=== PATIENT | male | born 1960 | race Caucasian/White ===

== ENCOUNTER 2020-10-07 10:15 | Emergency (ER) | payer BC ==
[2020-10-07 12:01] LABS: Urine Blood Trace-lysed (Negative); Urine Glucose Negative (Negative); Urine Protein Negative (Negative); Urine Specific Gravity 1.025 (1.005-1.030); Urine pH 5.5 (5.0-7.0)
--- NOTE | 2020-10-07 12:07 | RAD REPORT ---
EXAM DESCRIPTION: CT - CTHCSPWOC - 10/07/2020 11:58 am CLINICAL HISTORY: Trauma, head and neck injury. Dizziness;Pain COMPARISON: Head Brain Wo Cont dated 05/07/2017 TECHNIQUE: Axial 5 mm thick images of the head were obtained. Axial 2 mm thick images of the cervical spine were obtained with sagittal and coronal reconstruction images generated and reviewed. All CT scans are performed using dose optimization technique as appropriate and may include automated exposure control or mA/KV adjustment according to patient size. FINDINGS: CT HEAD WITHOUT CONTRAST: No acute hemorrhage, hydrocephalus or extra-axial collection is identified.No areas of brain edema or midline shift. The right maxillary sinus is opacified.This is chronic.The calvarium is intact. CT CERVICAL SPINE WITHOUT CONTRAST: No fracture or subluxation.No prevertebral soft tissues swelling is identified. Mild cervical spondyl osis which is most advanced at the C6-7 level were there is moderate disc height loss and neural fora nishi narrowing, predominantly left-sided. . No central spinal stenosis is appreciated. IMPRESSION: No acute intracranial or cervical spine findings.
[2020-10-07] MEDS ORDERED: ACETAMINOPHEN 500 MG TAB ONE (12:09)
[2020-10-07] MEDS ORDERED: FAMOTIDINE 20 MG/2 ML VIAL IV ONE (12:09)
[2020-10-07] MEDS ORDERED: KETOROLAC 30 MG/ML INJ ONE (12:09)
[2020-10-07] MEDS ORDERED: NA CHLORIDE 0.9% 500 ML ONE (12:09)
--- NOTE | 2020-10-07 12:17 | RAD REPORT ---
EXAM DESCRIPTION: RAD - Chest Single View - 10/07/2020 12:10 pm CLINICAL HISTORY: Dizziness and near syncope COMPARISON: Chest Single View dated 05/07/2017; Chest Single View dated 08/04/2015; CHEST SINGLE VIEW d ated 03/02/2010; CHEST SINGLE VIEW dated 02/16/2010 FINDINGS: No evidence of edema or pneumonia. The heart size is within normal limits.No acute osseous abnormality. No significant pleural effusions or pneumothorax. IMPRESSION: No acute cardiopulmonary disease.
[2020-10-07 12:33] LABS: Basophils % 0.7 % (0-1.3); Hematocrit 44.8 % (39.6-49.0); Lymphocytes % 20.6 % (15.3-44.8); MPV 8.1 fL (7.6-11.3); RBC Red Blood Cell Count 5.11 M/uL (4.33-5.43)
[2020-10-07 12:36] LABS: Urine Bacteria <20 /HPF (NONE SEEN); Urine RBC <5 /HPF (NONE SEEN)
[2020-10-07 12:37] LABS: Protime INR 1.15
[2020-10-07 12:54] LABS: ALT/SGPT 39 U/L (12-78); AST/SGOT 20 U/L (15-37); Albumin 3.9 g/dL (3.4-5.0); Alkaline Phosphatase 83 U/L (45-117); BUN Blood Urea Nitrogen 9 mg/dL (7-18); Bicarbonate 24 mmol/L (21-32); Bilirubin Direct 0.2 mg/dL (0-0.2); Glucose Level 102 mg/dL (74-106); Magnesium 2.1 mg/dL (1.8-2.4); NT PRO-BNP 23 pg/mL (<125); Potassium 3.8 mmol/L (3.5-5.1); Sodium Level 136 mmol/L (136-145); Troponin (Emerg Dept Use Only) < 0.02 ng/mL (0.0-0.045)
[2020-10-07 12:56] LABS: C-Reactive Protein 28.3 mg/L (<3.00); Ferritin 349.7 ng/mL (26-388)
--- NOTE | 2020-10-07 13:22 | RAD REPORT ---
EXAM DESCRIPTION: CT - Chest For Pe Angio - 10/07/2020 1:12 pm CLINICAL HISTORY: r/o PE COMPARISON: CTANGIO CHEST FOR PE dated 02/16/2010; Chest Single View dated 10/07/2020 TECHNIQUE: Dynamically enhanced 3 mm thick images of the chest were obtained during administration o f approximately 150mL Isovue 370 IV contrast. Coronal and oblique MIP reconstruction images were gene rated and reviewed. Exam utilizes a protocol to evaluate the pulmonary arterial tree. All CT scans are performed using dose optimization technique as appropriate and may include automated exposure control or mA/KV adjustment according to patient size. FINDINGS: No pulmonary emboli are identified. The aorta as imaged shows no acute or suspicious finding. No pericardial thickening or effusion. No infiltrate or mass in the lung parenchyma. No pleural effusion or pleural thickening. Slight motio n accentuates the interstitial pattern. Significant interstitial edema is not suspected. No mediastinal or hilar suspicious masses. No chest wall masses or abnormal axillary lymphadenopathy. IMPRESSION: No pulmonary emboli identified. No other significant or suspicious findings.
[2020-10-07 13:39] LABS: SARS-COV-2 RT PCR NEGATIVE (NEGATIVE)
--- NOTE | 2020-10-07 14:14 | ER ---
Nurse's Notes [facility] Name: Kunal Russell Age: 59 yrs Sex: Male : 1960 Arrival Date: 10/07/2020 Time: 10:20 Bed 19 Private MD: Rj Garcia Diagnosis: Fever, unspecified;Viral infection, unspecified Presentation: 10/07 10:34 Chief complaint: Patient states: Dizziness and nausea, fatigue x 3-4 weeks, fell this jl7 morning from dizziness; left sided neck pain 2-3 months; tested for COVID yesterday and it was negative, had the Pfizer shot yesterday. Coronavirus screen: Client denies travel out of the [place] in the last 14 days. fatigue, Client presents with at least one sign or symptom that may indicate coronavirus-19. Standard/surgical mask placed on the client. Provider contacted for isolation considerations. Ebola Screen: No symptoms or risks identified at this time. Initial Sepsis Screen: Does the patient meet any 2 criteria? No. Patient's initial sepsis screen is negative. Does the patient have a suspected source of infection? No. Patient's initial sepsis screen is negative. Risk Assessment: Do you want to hurt yourself or someone else? Patient reports no desire to harm self or others. Onset of symptoms is unknown. Care prior to arrival: None. 10:34 Method Of Arrival: Wheelchair jl7 10:34 Acuity: HUY 3 jl7 Triage Assessment: 10:38 General: Appears in no apparent distress. uncomfortable, Behavior is calm, cooperative, jl7 appropriate for age. Pain: Complains of pain in left side of neck Pain currently is 10 out of 10 on a pain scale. GI: Reports nausea, vomiting. Historical: - Allergies: 10:38 Codeine; jl7 10:38 Demerol; jl7 10:38 Morphine; jl7 10:38 PENICILLINS; jl7 10:38 Phenergan; jl7 - PMHx: 10:38 Hypertension; jl7 - Immunization history:: Adult Immunizations up to date, Client reports receiving the 1st dose of the Covid vaccine, October 06, 2020 Pfizer. - Social history:: Smoking status: Patient denies any tobacco usage or history of. Screenin:42 Abuse screen: Denies threats or abuse. Nutritional screening: No deficits noted. rb3 Tuberculosis screening: No symptoms or risk factors identified. Fall Risk Fall in past 12 months (25 points). No secondary diagnosis (0 pts). No IV (0 pts). Ambulatory Aid- None/Bed Rest/Nurse Assist (0 pts). Gait- Weak (10 pts.). Mental Status- Oriented to own ability (0 pts). Total [place] Fall Scale indicates Low Risk Score (25-44 pts). Fall prevention measures have been instituted. Side Rails Up X 2 Placed close to Nursing Station 1:1 attendant Assigned to Pt. Frequent Obs/Assesments occuring As available Patient and Family Educated on Fall Prevention Program and strategies. Assessment: 10:42 General: Appears in no apparent distress. Behavior is calm, cooperative, Reports fever rb3 for fatigue for 2-3 months. Pain: Complains of pain in left side of neck. Pain: Complains of pain in right hand. Neuro: Level of Consciousness is awake, alert, obeys commands, Oriented to person, place, time, situation. Neuro: Reports dizziness, a syncopal episode weakness Pt reports when he stands up he gets really dizzy and falls.. Cardiovascular: Reports fatigue, nausea, syncope, vomiting, Dizziness. Pt reports falling twice this morning due to feeling dizzy. Capillary refill < 3 seconds Patient's skin is warm and dry. Respiratory: Airway is patent Respiratory effort is even, unlabored, Respiratory pattern is regular, symmetrical. GI: Abdomen is non-distended, Reports nausea, vomiting. : No signs and/or symptoms were reported regarding the genitourinary system. Derm: Reports A knot popped up on his left foot this morning and he doesn't know what happened to it. Musculoskeletal: Range of motion: intact in all extremities. 11:40 Reassessment: Patient appears in no apparent distress at this time. Patient and/or rb3 family updated on plan of care and expected duration. Pain level reassessed. Patient is alert, oriented x 3, equal unlabored respirations, skin warm/dry/pink. 12:30 Reassessment: Patient appears in no apparent distress at this time. No changes from rb3 previously documented assessment. 12:53 Reassessment: Dr. Mcgowan notified of elevated Ddimer 753. Verbal order given for CT ss chest PE. 13:30 Reassessment: Patient appears in no apparent distress at this time. Patient and/or rb3 family updated on plan of care and expected duration. Pain level reassessed. Patient is alert, oriented x 3, equal unlabored respirations, skin warm/dry/pink. Vital Signs: 10:34 BP 159 / 86; Pulse 84; Resp 17; Temp 101.4; Pulse Ox 99% ; Weight 95.25 kg; Height 6 jl7 ft. 1 in. (185.42 cm); Pain 10/10; 11:30 BP 156 / 83; Pulse 85; Resp 17; Pulse Ox 97% ; rb3 12:30 BP 138 / 93; Pulse 80; Resp 20; Pulse Ox 97% ; rb3 13:30 BP 122 / 59; Pulse 73; Resp 23; Pulse Ox 94% ; rb3 10:34 Body Mass Index 27.71 (95.25 kg, 185.42 cm) jl7 ED Course: 10:20 Patient arrived in ED. mr 10:20 Rj Garcia MD is Private Physician. mr 10:34 Tex Mcgowan MD is Attending Physician. kdr 10:38 Triage completed. jl7 10:38 Arm band placed on right wrist. Patient placed in an exam room, on a stretcher. jl7 10:42 Patient has correct armband on for positive identification. Bed in low position. Call rb3 light in reach. Side rails up X 1. air sampling and monitoring on. Pulse ox on. NIBP on. 10:50 Roxana Yeboha, RN is Primary Nurse. rb3 11:58 CT Head C Spine In Process Unspecified. EDMS 12:10 XRAY Chest (1 view) In Process Unspecified. EDMS 12:20 Initial lab(s) drawn, by ok, sent to lab. First set of blood cultures drawn. Inserted mt saline lock: 20 gauge in right forearm, using aseptic technique. Blood collected. 13:12 CT Chest For PE Angio In Process Unspecified. EDMS 14:13 Rj Garcia MD is Referral Physician. kdr 14:53 No provider procedures requiring assistance completed. IV discontinued, intact, rb3 bleeding controlled, No redness/swelling at site. Pressure dressing applied. Administered Medications: 12:15 Drug: Tylenol 1000 mg Route: PO; rb3 13:10 Follow up: Response: No adverse reaction; Temperature is decreased; Temp. 99.0 rb3 12:25 Drug: NS 0.9% 500 ml Route: IV; Rate: bolus; Site: right forearm; rb3 13:00 Follow up: IV Status: Completed infusion rb3 12:25 Drug: Ketorolac 15 mg Route: IVP; Site: right forearm; rb3 12:40 Follow up: Response: No adverse reaction rb3 12:25 Drug: Pepcid (famotidine) 20 mg Route: IVP; Site: right forearm; rb3 12:40 Follow up: Response: No adverse reaction rb3 Intake: Outcome: 14:14 Discharge ordered by . kdr 14:53 Discharged to home via wheelchair, with family. rb3 14:53 Condition: stable 14:53 Discharge instructions given to patient, Instructed on discharge instructions, follow up and referral plans. medication usage, Demonstrated understanding of instructions, follow-up care, medications, Prescriptions given X 1. 14:54 Patient left the ED. rb3 Signatures: Dispatcher [employer] EDMS Tex Mcgowan MD MD kdr Rivera, Mary mr Smirch, Shelby, RN RN Dominique Mills RN RN [email or web address] [place] Roxana Richardson RN RN rb3
--- NOTE | 2020-10-07 14:14 | EDPHYS ---
Physician Documentation [facility] Name: Kunal Russell Age: 59 yrs Sex: Male : 1960 Arrival Date: 10/07/2020 Time: :20 Bed 19 Private MD: Rj Garcia ED Physician Tex Mcgowan HPI: 10/07 16:19 This 59 yrs old Male presents to ER via Wheelchair with complaints of kdr Dizziness, Vomiting, Neck pain. 16:19 Has multiple longstanding complaints including fatigue for 3 to 4 weeks dizziness left kdr neck pain and nausea. He states that since he moved his home belongings from [facility] to [place] about a month ago and that he by himself, he has been very fatigued and unable to get back to his baseline. He also complains of left neck pain has been ongoing for 2 to 3 months. He has been previously evaluated for this and was given medication for it which while taking the medication, was resolved, immediately upon cessation of that medication he again began to have pain in his left neck. He has no radiculopathy secondary to this apparent neck pain. Patient is awake alert and oriented x3 he shows no signs of acute distress he is moving all extremities. He is moving his head up and down side to side without any evidence of nuchal rigidity. He was noted to be febrile on arrival. Otherwise she appeared stable.. Severity of symptoms: At their worst the symptoms were mild moderate in the emergency department the symptoms are unchanged. The patient has not experienced similar symptoms in the past. Patient has had several physician visits for some of the symptoms without any clear resolution or diagnosis found.. Historical: - Allergies: 10:38 Codeine; jl7 10:38 Demerol; jl7 10:38 Morphine; jl7 10:38 PENICILLINS; jl7 10:38 Phenergan; jl7 - PMHx: 10:38 Hypertension; jl7 - Immunization history:: Adult Immunizations up to date, Client reports receiving the 1st dose of the Covid vaccine, October 06, 2020 Beaming. - Social history:: Smoking status: Patient denies any tobacco usage or history of. ROS: 16:19 Constitutional: Negative for fever, chills, and weight loss, he has had generalized kdr fatigue for about a month Eyes: Negative for injury, pain, redness, and discharge, ENT: Negative for injury, pain, and discharge, Cardiovascular: Negative for chest pain, palpitations, and edema, Respiratory: Negative for shortness of breath, cough, wheezing, and pleuritic chest pain, Abdomen/GI: Negative for abdominal pain, nausea, vomiting, diarrhea, and constipation, Back: Negative for injury and pain, : Negative for injury, bleeding, discharge, and swelling, MS/Extremity: Negative for injury and deformity, Skin: Negative for injury, rash, and discoloration, Psych: Negative for depression, anxiety, suicide ideation, homicidal ideation, and hallucinations, Allergy/Immunology: Negative for hives, rash, and allergies, Endocrine: Negative for neck swelling, polydipsia, polyuria, polyphagia, and marked weight changes, Hematologic/Lymphatic: Negative for swollen nodes, abnormal bleeding, and unusual bruising. 16:19 Neuro: Positive for dizziness, weakness, Generalized fatigue, Negative for altered mental status, numbness, seizure activity, speech changes, syncope, near syncope. Exam: 16:19 Constitutional: This is a well developed, well nourished patient who is awake, alert, kdr and in no acute distress. Head/Face: Normocephalic, atraumatic. Eyes: Pupils equal round and reactive to light, extra-ocular motions intact. Lids and lashes normal. Conjunctiva and sclera are non-icteric and not injected. Cornea within normal limits. Periorbital areas with no swelling, redness, or edema. Chest/axilla: Normal chest wall appearance and motion. Nontender with no deformity. No lesions are appreciated. Cardiovascular: Regular rate and rhythm with a normal S1 and S2. No gallops, murmurs, or rubs. Normal PMI, no JVD. No pulse deficits. Respiratory: Lungs have equal breath sounds bilaterally, clear to auscultation and percussion. No rales, rhonchi or wheezes noted. No increased work of breathing, no retractions or nasal flaring. Abdomen/GI: Soft, non-tender, with normal bowel sounds. No distension or tympany. No guarding or rebound. No evidence of tenderness throughout. Back: No spinal tenderness. No costovertebral tenderness. Full range of motion. Skin: Warm, dry with normal turgor. Normal color with no rashes, no lesions, and no evidence of cellulitis. MS/ Extremity: Pulses equal, no cyanosis. Neurovascular intact. Full, normal range of motion. Neuro: Awake and alert, GCS 15, oriented to person, place, time, and situation. Cranial nerves II-XII grossly intact. Motor strength 5/5 in all extremities. Sensory grossly intact. Cerebellar exam normal. Normal gait. Psych: Awake, alert, with orientation to person, place and time. Behavior, mood, and affect are within normal limits. 16:19 Neck: Lateral left neck pain without restriction of movement. The patient was able to look side to side without any obvious significant distress or discomfort.. Vital Signs: 10:34 BP 159 / 86; Pulse 84; Resp 17; Temp 101.4; Pulse Ox 99% ; Weight 95.25 kg; Height 6 jl7 ft. 1 in. (185.42 cm); Pain 10/10; 11:30 BP 156 / 83; Pulse 85; Resp 17; Pulse Ox 97% ; rb3 12:30 BP 138 / 93; Pulse 80; Resp 20; Pulse Ox 97% ; rb3 13:30 BP 122 / 59; Pulse 73; Resp 23; Pulse Ox 94% ; rb3 10:34 Body Mass Index 27.71 (95.25 kg, 185.42 cm) jl7 MDM: 14:14 Patient medically screened. kdr 14:34 ED course: Patient declined MRI of his head for his intermittent dizziness. kdr 16:24 Data reviewed: vital signs, nurses notes, lab test result(s), radiologic studies. kdr Counseling: I had a detailed discussion with the patient and/or guardian regarding: the historical points, exam findings, and any diagnostic results supporting the discharge/admit diagnosis, lab results, radiology results. ED course: The patient remained stable in the ED. He declined further evaluation including an MRI of his head for dizziness. He had no signs of meningitis. He otherwise was alert and oriented and his speech and movements were at baseline. I reviewed in depth all the laboratory work and radiology studies performed and responded to questions. They are satisfied with the care provided and the plan for discharge and follow-up. 10/07 11:35 Order name: Basic Metabolic Panel kdr 10/07 11:35 Order name: CBC with Diff kdr 10/07 11:35 Order name: LFT's kdr 10/07 11:35 Order name: Magnesium kdr 10/07 11:35 Order name: NT PRO-BNP kdr 08 11:35 Order name: PT-INR; Complete Time: 14:11 [facility] 08 11:35 Order name: Troponin (emerg Dept Use Only); Complete Time: 14:11 [facility] 08 11:36 Order name: Basic Metabolic Panel; Complete Time: 14:11 [facility] 08 11:36 Order name: CBC with Automated Diff; Complete Time: 14:11 [facility] 08 11:36 Order name: Liver (Hepatic) Function; Complete Time: 14:11 [facility] 08 11:36 Order name: Magnesium; Complete Time: 14:11 [facility] 08 11:36 Order name: NT PRO-BNP; Complete Time: 14:11 [facility] 08 11:37 Order name: Blood Culture Adult (2) [facility] 10/07 11:35 Order name: CT Head C Spine; Complete Time: 14:11 [facility] 08 11:35 Order name: XRAY Chest (1 view); Complete Time: 14:11 [facility] 10/07 11:37 Order name: C-Reactive Protein; Complete Time: 14:11 [facility] 10/07 11:37 Order name: D-Dimer; Complete Time: 14:11 [facility] 10/07 11:37 Order name: Ferritin; Complete Time: 14:11 [facility] 08 11:37 Order name: Lactate; Complete Time: 14:11 [facility] 08 11:37 Order name: Lipase; Complete Time: 14:11 [facility] 08 11:37 Order name: Procalcitonin; Complete Time: 14:11 [facility] 08 11:37 Order name: Ptt, Activated; Complete Time: 14:11 [facility] 10/07 11:37 Order name: Strep; Complete Time: 14:11 [facility] 10/07 11:37 Order name: Urine Microscopic Only; Complete Time: 14:11 [facility] 08 12:00 Order name: Urine Dipstick-Ancillary; Complete Time: 14:11 [facility] 10/07 12:53 Order name: CT Chest For PE Angio; Complete Time: 14:11 10/07 13:32 Order name: Throat Culture [facility] 10/07 13:39 Order name: COVID-19/FLU A+B; Complete Time: 14:11 [facility] 10/07 11:35 Order name: EKG; Complete Time: 11:36 [facility] 10/07 11:35 Order name: Cardiac monitoring; Complete Time: 11:40 kdr 10/07 11:35 Order name: EKG - Nurse/Tech; Complete Time: 12:58 kdr 10/07 11:35 Order name: IV Saline Lock; Complete Time: 12:58 kdr 10/07 11:35 Order name: Labs collected and sent; Complete Time: 12:58 kdr 10/07 11:35 Order name: O2 Per Protocol; Complete Time: 11:40 kdr 10/07 11:35 Order name: O2 Sat Monitoring; Complete Time: 11:40 kdr 10/07 11:37 Order name: Droplet/Contact Precautions; Complete Time: 11:43 kdr 10/07 11:37 Order name: Urine Dipstick-Ancillary (obtain specimen); Complete Time: 12:57 kdr Administered Medications: 12:15 Drug: Tylenol 1000 mg Route: PO; rb3 13:10 Follow up: Response: No adverse reaction; Temperature is decreased; Temp. 99.0 rb3 12:25 Drug: NS 0.9% 500 ml Route: IV; Rate: bolus; Site: right forearm; rb3 13:00 Follow up: IV Status: Completed infusion rb3 12:25 Drug: Ketorolac 15 mg Route: IVP; Site: right forearm; rb3 12:40 Follow up: Response: No adverse reaction rb3 12:25 Drug: Pepcid (famotidine) 20 mg Route: IVP; Site: right forearm; rb3 12:40 Follow up: Response: No adverse reaction rb3 Disposition Summary: 10/07/20 14:14 Discharge Ordered Location: Home kdr Problem: new kdr Symptoms: have improved kdr Condition: Stable kdr Diagnosis - Fever, unspecified kdr - Viral infection, unspecified kdr Followup: kdr - With: Rj Garcia MD - When: 2 - 3 days - Reason: If symptoms return, Further diagnostic work-up, Recheck today's complaints, Continuance of care, Re-evaluation by your physician Discharge Instructions: - Discharge Summary Sheet kdr - Hematuria, Adult kdr - Fever, Adult, [id number] kdr - Viral Illness, Adult kdr Forms: - Medication Reconciliation Form kdr - Thank You Letter kdr Prescriptions: - Bactrim DS 800-160 mg Oral Tablet - take 1 tablet by ORAL route every 12 hours for 7 days; 14 tablet; Refills: 0, kdr Product Selection Permitted Signatures: Dispatcher [employer] EDMS Tex Mcgowan MD MD kdr Dominique Kolb RN RN jl7 Roxana Yeboah, RN RN rb3 Corrections: (The following items were deleted from the chart) 12:55 11:37 CORONAVIRUS+MR.LAB.BRZ ordered. EDMS EDMS 12:56 11:38 Influenza Screen (A \T\ B)+BA.LAB.BRZ ordered. EDMS EDMS 13:35 11:37 Correa ordered. kdr rb3
[2020-10-07 15:01] VITALS: TEMP 101.4
[2020-10-07 15:05] VITALS: BP 122/59; O2SAT 94
[2020-10-07 15:28] LABS: Urine Blood Negative (Negative); Urine Glucose Negative (Negative); Urine Protein 1+ (Negative); Urine Specific Gravity >=1.030 (1.005-1.030)
== END 2020-10-07 14:54 | disposition home or self-care (01) ==
LOC: ER 10:15
DX: B34.9 Viral infection, unspecified (principal); I10 Essential (primary) hypertension; Z20.822 Contact with and (suspected) exposure to COVID-19; Z88.0 Allergy status to penicillin; Z88.5 Allergy status to narcotic agent; Z88.8 Allergy status to other drugs, medicaments and biological substances
CPT/HCPCS: 96361; 93005; 87040; 87070; 85025; 80048; 36415; 83735; 85610; 85379; 80076; 87081; 83605; 85730; 84484; 82728; 83690; 84145; 83880; 0240U; 86140; 70450; 72125; 71275; 71045; 96375; 96374; 99284; Q9967; J7040; 81003; 81015

== ENCOUNTER 2020-11-05 08:43 | Emergency (ER) | payer SELFPAY ==
[2020-11-05] MEDS ORDERED: FENTANYL CITR 100 MCG/2 ML ONE (09:26)
--- NOTE | 2020-11-05 09:41 | RAD REPORT ---
EXAM DESCRIPTION: US - Extremity Venous Uni Ltd - 11/05/2020 9:28 am CLINICAL HISTORY: Pain COMPARISON: None. TECHNIQUE: Real-time sonographic evaluation of the left lower extremity deep venous system was perfo rmed. FINDINGS: Normal compressibility, flow augmentation, phasic flow and spontaneous flow is identified in the left lower extremity deep venous system. No intraluminal filling defects seen. IMPRESSION: No DVT in the left lower extremity.
--- NOTE | 2020-11-05 11:18 | RAD REPORT ---
EXAM DESCRIPTION: RAD - Tib Fib Left - 11/05/2020 10:27 am CLINICAL HISTORY: PAIN COMPARISON: No comparisons FINDINGS: No acute fracture. No malalignment. No significant focal degenerative changes. IMPRESSION: No acute osseous abnormality involving the tibia or fibula.
[2020-11-05] MEDS ORDERED: METHYLPREDNISOLONE 40 MG INJ ONE (11:25)
--- NOTE | 2020-11-05 11:31 | RAD REPORT ---
EXAM DESCRIPTION: US - Lower Extremity Artery Uni Ltd - 11/05/2020 11:06 am CLINICAL HISTORY: Leg pain COMPARISON: None FINDINGS: The common femoral, superficial femoral and popliteal arteries bilaterally demonstrate triphasic wave forms The posterior tibial and dorsalis pedis arteries demonstrate biphasic waveforms bilaterally. IMPRESSION: No definite hemodynamically significant stenosis identified. Biphasic waveforms in the p osterior tibial and dorsalis pedis arteries.
--- NOTE | 2020-11-05 11:53 | ER ---
Nurse's Notes [facility] Name: Kunal Russell Age: 59 yrs Sex: Male : 1960 Arrival Date: 11/05/2020 Time: 08:50 Bed 24 Private MD: Diagnosis: Pain in left lower leg Presentation: 11/05 08:50 Chief complaint: EMS states: Pain from L lateral knee down to L ankle that began ss yesterday while sitting in a recliner. No known injury. Coronavirus screen: Client denies travel out of the [place] in the last 14 days. Ebola Screen: Patient denies exposure to infectious person. Patient denies travel to an Ebola-affected area in the 21 days before illness onset. Initial Sepsis Screen: Does the patient meet any 2 criteria? No. Patient's initial sepsis screen is negative. Does the patient have a suspected source of infection? No. Patient's initial sepsis screen is negative. Risk Assessment: Do you want to hurt yourself or someone else? Patient reports no desire to harm self or others. Onset of symptoms was November 04, 2020. 08:50 Method Of Arrival: EMS: [facility] ss 08:50 Acuity: HUY 4 ss Historical: - Allergies: 08:51 Codeine; ss 08:51 Demerol; ss 08:51 Morphine; ss 08:51 PENICILLINS; ss 08:51 Phenergan; ss - PMHx: 08:51 Hypertension; ss - Immunization history:: Adult Immunizations unknown. - Social history:: Smoking status: unknown. Screenin:13 Abuse screen: Denies threats or abuse. Denies injuries from another. Nutritional ss screening: No deficits noted. Tuberculosis screening: Never had TB. Fall Risk None identified. Assessment: 09:00 General: Appears in no apparent distress. Behavior is calm, cooperative. Neuro: Level ss of Consciousness is awake, alert, obeys commands. Cardiovascular: Capillary refill < 3 seconds is brisk in bilateral fingers. Cardiovascular: Pulses are palpable in right posterior tibial artery and left posterior tibial artery. Respiratory: Airway is patent Respiratory effort is even, unlabored, Respiratory pattern is regular, symmetrical. Derm: Skin is pink, warm \T\ dry. normal. Musculoskeletal: Circulation, motion, and sensation intact. Range of motion: intact in all extremities, Swelling absent. 11:00 Reassessment: Pt is requesting steroid injection for his poison joe rash. GI: Abdomen ss is non-distended. 12:13 Reassessment: Patient appears in no apparent distress at this time. Patient and/or ss family updated on plan of care and expected duration. Pain level reassessed. Patient is alert, oriented x 3, equal unlabored respirations, skin warm/dry/pink. Vital Signs: 08:50 Resp 16; Weight 99.79 kg; Height 6 ft. 1 in. (185.42 cm); Pain 10/10; ss 08:51 BP 139 / 88; Pulse 72; Resp 16; Temp 97.9(O); Pulse Ox 95% on R/A; mh5 08:50 Body Mass Index 29.03 (99.79 kg, 185.42 cm) ss ED Course: 08:50 Patient arrived in ED. ss 08:51 Basilio Verde PA is PHCP. cp 08:51 Tex Mcgowan MD is Attending Physician. cp 08:51 Triage completed. ss 08:51 Arm band placed on right wrist. ss 08:53 Patient has correct armband on for positive identification. Bed in low position. Call mh5 light in reach. Side rails up X2. Adult w/ patient. Warm blanket given. Pillow given. Pulse ox on. NIBP on. 09:00 Eden Serrano, CJ is Primary Nurse. ss 09:28 US Extremity Venous Unilateral Ltd In Process Unspecified. EDMS 10:26 XRAY Tib Fib LEFT In Process Unspecified. EDMS 11:06 US LE Artery Uni Ltd In Process Unspecified. EDMS 11:52 Rj Garcia MD is Referral Physician. cp 12:13 No provider procedures requiring assistance completed. Patient did not have IV access ss during this emergency room visit. Administered Medications: 09:46 Drug: fentaNYL (PF) 25 mcg Route: IM; Site: right deltoid; ss 10:59 Follow up: Response: No adverse reaction; Pain is decreased ss 11:41 Drug: SOLU-Medrol (methylPREDNISolone sodium succinate) 80 mg Route: IM; Site: left ss deltoid; 12:13 Follow up: Response: No adverse reaction ss Outcome: 11:52 Discharge ordered by . cp 12:13 Discharged to home ambulatory. ss 12:13 Condition: good 12:13 Discharge instructions given to patient, family, Instructed on discharge instructions, follow up and referral plans. medication usage, Demonstrated understanding of instructions, follow-up care, medications, Prescriptions given X 1. 12:14 Patient left the ED. ss Signatures: Dispatcher [employer] Eden Peralta RN RN Basilio Meredith PA PA cp Martinez, Maria mh
--- NOTE | 2020-11-05 11:53 | EDPHYS ---
Physician Documentation [facility] Name: Kunal Russell Age: 59 yrs Sex: Male : 1960 Arrival Date: 11/05/2020 Time: 08:50 Bed 24 Private MD: ED Physician Tex Mcgowan HPI: 11/05 09:00 This 59 yrs old Male presents to ER via EMS with complaints of Leg Pain. cp 09:00 The patient presents with pain, that is acute. The complaints affect the lateral aspect cp of left knee, lateral aspect of left calf, posterior aspect of left knee and left calf. Onset: The symptoms/episode began/occurred yesterday. Modifying factors: the symptoms are aggravated by movement, weight bearing, bending knee. Associated signs and symptoms: Pertinent negatives fever, numbness, swelling, warmth. Treatment prior to arrival includes: no previous treatment. Historical: - Allergies: 08:51 Codeine; ss 08:51 Demerol; ss 08:51 Morphine; ss 08:51 PENICILLINS; ss 08:51 Phenergan; ss - PMHx: 08:51 Hypertension; ss - Immunization history:: Adult Immunizations unknown. - Social history:: Smoking status: unknown. ROS: 09:05 MS/extremity: Positive for pain, of the left calf and posterior aspect of left knee and cp lateral aspect of left calf and lateral aspect of left knee, Negative for injury or acute deformity, decreased range of motion, paresthesias. 09:05 Eyes: Negative for injury, pain, redness, and discharge. cp 09:05 Constitutional: Negative for body aches, chills, fever, poor PO intake. 09:05 Cardiovascular: Negative for chest pain, edema, palpitations. 09:05 Respiratory: Negative for cough, shortness of breath, wheezing. 09:05 Abdomen/GI: Negative for abdominal pain, nausea, vomiting, and diarrhea, constipation. 09:05 Skin: Negative for cellulitis, rash. 09:05 Neuro: Negative for numbness, tingling, weakness. 09:05 All other systems are negative. Exam: 09:10 Constitutional: The patient appears in no acute distress, alert, awake, cp non-diaphoretic, non-toxic, well developed, well nourished, uncomfortable. 09:10 Head/Face: Normocephalic, atraumatic. cp 09:10 Cardiovascular: Rate: normal, Pulses: Pulses are 1+ in left dorsalis pedis artery. Edema: is not appreciated, JVD: is not appreciated. 09:10 Respiratory: the patient does not display signs of respiratory distress, Respirations: normal, no use of accessory muscles. 09:10 Abdomen/GI: Exam negative for discomfort, distension, guarding, Inspection: abdomen appears normal. 09:10 Back: pain, is absent, ROM is normal. 09:10 Musculoskeletal/extremity: Extremities: grossly normal except: noted in the left calf and posterior aspect of left knee and lateral aspect of left calf and lateral aspect of left knee: pain, tenderness, ROM: full active range of motion, in the left knee and left ankle, Severe pain noted. 09:10 Skin: cellulitis, is not appreciated, no rash present. Vital Signs: 08:50 Resp 16; Weight 99.79 kg; Height 6 ft. 1 in. (185.42 cm); Pain 10/10; ss 08:51 BP 139 / 88; Pulse 72; Resp 16; Temp 97.9(O); Pulse Ox 95% on R/A; mh5 08:50 Body Mass Index 29.03 (99.79 kg, 185.42 cm) ss MDM: 08:54 Patient medically screened. cp 09:00 Differential diagnosis: DVT, cellulitis, PAD, sciatica. cp 11:47 Data reviewed: vital signs, nurses notes, radiologic studies, plain films, ultrasound. ED course: no results found on inquiry of [place] prescription monitor website. 11:52 Counseling: I had a detailed discussion with the patient and/or guardian regarding: the historical points, exam findings, and any diagnostic results supporting the discharge/admit diagnosis, radiology results, the need for outpatient follow up, a family practitioner, to return to the emergency department if symptoms worsen or persist or if there are any questions or concerns that arise at home. 11:52 Response to treatment: the patient's symptoms have markedly improved after treatment. ED course: VSS. Pain markedly improved with meds. Radiology studies negative for acute findings. Will discharge to home for continued monitoring. 11/05 08:52 Order name: US Extremity Venous Unilateral Ltd; Complete Time: 10:08 cp 11/05 08:54 Order name: XRAY Tib Fib LEFT; Complete Time: 11:19 11/05 10:16 Order name: US Moon Uni Ltd; Complete Time: 11:42 cp 11/05 11:43 Interpretation: Report reviewed. cp Administered Medications: 09:46 Drug: fentaNYL (PF) 25 mcg Route: IM; Site: right deltoid; ss 10:59 Follow up: Response: No adverse reaction; Pain is decreased ss 11:41 Drug: SOLU-Medrol (methylPREDNISolone sodium succinate) 80 mg Route: IM; Site: left ss deltoid; 12:13 Follow up: Response: No adverse reaction ss Disposition: 13:03 Co-signature as Attending Physician, Tex Mcgowan MD I agree with the assessment and kdr plan of care. Disposition Summary: 11/05/20 11:52 Discharge Ordered Location: Home cp Problem: new cp Symptoms: have improved cp Condition: Stable cp Diagnosis - Pain in left lower leg cp Followup: cp - With: Rj Garcia MD - When: 2 - 3 days - Reason: Recheck today's complaints Discharge Instructions: - Discharge Summary Sheet cp - Musculoskeletal Pain cp Forms: - Medication Reconciliation Form cp - Thank You Letter cp - Antibiotic Education cp - Prescription Opioid Use cp Prescriptions: - Naprosyn 500 mg Oral Tablet - take 1 tablet by ORAL route 2 times per day take with food; 20 tablet; Refills: cp 0, Product Selection Permitted Signatures: Dispatcher [employer] EDTex Berumen MD MD kdr Smirch, Shelby, RN RN Basilio Meredith PA PA cp
[2020-11-05 12:20] VITALS: BP 139/88; TEMP 97.9; O2SAT 95
== END 2020-11-05 12:14 | disposition home or self-care (01) ==
LOC: ER 08:43
DX: M79.662 Pain in left lower leg (principal); I10 Essential (primary) hypertension; Z88.0 Allergy status to penicillin; Z88.5 Allergy status to narcotic agent; Z88.8 Allergy status to other drugs, medicaments and biological substances
CPT/HCPCS: 93926; 93971; 96372; 99284; J2920; J3010

== ENCOUNTER 2022-01-24 19:47 | Emergency (ER) | payer BC, SELFPAY ==
--- OUTSIDE RECORDS SUMMARY | 2022-01-24 19:51 | XMS REPORT | Continuity of Care Document ---
:1960 Author Organization [facility] t Address [address] [place] [address] Care Team Providers Name Role Phone MICHELLE JACKSON JR Primary Care Physician Unavailable DEVAN BANKS Attending Clinician Unavailable Devan Banks MD Attending Clinician Anette Medina Attending Clinician DEVAN BANKS Admitting Clinician Unavailable Payers Payer Name Policy Type Policy Number Effective Date Expiration Date [id number] 2021 00:00:00 Problems Condition Condition Condition Status Onset Resolution Last Treating Co mments Source Name Details Category Date Date Treatment Clinician Date SUICIDAL SUICIDAL Diagnosis Active 2016-03-10 Memoria Active 03-02 22:13:00 l 03/02/2016 00:00: Dwaine mcgill [address] Hypertensi Hypertens Problem Resolve 2016-03-06 Memoria ve darryn d 03:40:30 l disorder, disorder, Herm jn systemic systemic arterial arterial (disorder) (disorder) Resolved Problem 03/06/2016 non-compli ant [facility] Allergies, Adverse Reactions, Alerts Allergy Allergy Status Severity Reaction(s) Onset Inactive Treating Comm ents Source Name Type Date Date Clinician Meperidi Propensi Active Nausea Univer s ne ty to and/or 03-23 ity of adverse Vomiting 00:00: [place] reaction [facility] Morphine Propensi Active Rash Univer s ty to - ity of adverse 00:00: [place] reaction 00 Medical s Branch Penicill Propensi Active Unknown - Uni vers ins ty to See comments 03-23 ity of adverse 00:00: [place] reaction 00 Medical s Branch MEPERIDI DRUG Active N/V Univers NE INGREDI 03-23 ity of 00:00: [place] 00 Medical Branch MORPHINE DRUG Active Rash Univers INGREDI 03-23 ity of 00:00: [place] 00 Medical Branch PENICILL Drug Active Unknown-Cmnt Un oscar INS Class 03-23 ity of 00:00: [place] 00 [facility] Demerol Demerol Active Memoria HCl HCl l [place] morphine morphine Active Memori a l [place] penicill penicill Active Memori a ins ins l [place] Social History Social Habit Start Date Stop Date Quantity Comments Source Exposure to Unable to assess Univers ity of SARS-CoV-2 [facility] [place] (event) [place] Sex Assigned At [birth year] Univers[facility] of 00:00:00 00:00:00 [facility] Smoking Status Start Date Stop Date Source Unknown if [facility] Social History [facility] Medications Ordered Filled Start Stop Current Ordering Indication Dosage Frequency Signature Comments Components Source Medication Medication Date Date Medication? Clinician (SIG) Name Name predniSONE Yes [id number] 40mg Take 2 Univers 20 mg 03-23 9108 tablets by ity of tablet 00:00: mouth [place] 00 [facility] multivitami No Notes: Dago francisco n 03-03 (Same l 15:00: as:Thera) [place] 00 Chlordiazep No 50 mg, Dago francisco oxide 03-03 Route: PO, l Hydrochlori 04:24: Drug form: [place] de 25 MG 00 CAP, ONCE, Oral Dosing Capsule Weight 109.091, kg, Alcohol Withdrawal , Start date: 03/02/16 22:24:00 [employer], Stop date: 03/02/16 22:24:00 [employer] Ibuprofen No 600 mg, Memor ia 03-03 Route: PO, l 01:47: Drug form: [place] 00 TAB, ONCE, Dosing Weight 109.091, kg, Priority: STAT, Start date: 03/02/16 19:47:00 [employer]UDIT[employer], Stop date: 03/02/16 19:47:00 [employer] Lisinopril No Notes: Memor ia 1- (Same as: l 22:00: Prinivil, Zestril) multivitami No Notes: Dago francisco n 03-02 (Same l 21:53: as:Thera) WASTE: F/P - Black; E - Municipal Trash Bin Take with food. Ativan No Notes: Memoria 03-02 (Same as: l 20:25: Ativan) Thiamine No Notes: Memoria - (Same As: l 20:24: Vitamin B1) Folic Acid No Notes: Memor ia 03-02 (Same as: l 20:24: Folvite) Valium No 5 mg, Memoria 03-02 Route: l 20:23: IVP, Drug form: INJ, ONCE, Dosing Weight 109.091, kg, Priority: STAT, Start date: 03/02/16 14:23:00 [employer], Stop date: 03/02/16 14:23:00 [employer] Zofran No Notes: Memoria 03-02 (Same as: l 20:19: Zofran) MEDICATION WASTE Product Size: 4 mg Product Wasted: _0__ mg Sodium No 1,000 mL, Memori a Chloride 03-02 1000 l 0.154 20:18: ml/hr, MEQ/ML 00 Infuse Injectable Over: 1 Solution hr, Route: IV, 1,000, Drug form: INJ, ONCE, Priority: STAT, Dosing Weight 109.091 kg, Start date: 03/02/16 14:18:00 [employer], Duration: 1 doses or times, Stop date: 03/02/16 14:18:00 [employer] Chlordiazep No 50 mg, 2 Me moria oxide 03-02 cap, l 20:18: Route: PO, Drug form: CAP, ONCE, Dosing Weight 109.091, kg, Priority: STAT, Start date: 03/02/16 14:18:00 [employer] AUDIT[employer], Stop date: 03/02/16 14:18:00 [employer] Vital Signs Vital Name Observation Time Observation Value Comments Source Systolic blood 2021-03-23 18:43:00 182 mm[Hg] Univer sity of pressure [facility] Diastolic blood 2021-03-23 18:43:00 103 mm[Hg] Unive rsity of pressure [facility] Heart rate 2021-03-23 18:43:00 88 /min Universi [facility] Body temperature 2021-03-23 18:43:00 36.67 Noreen [facility] Respiratory rate 2021-03-23 18:43:00 18 /min [facility] Body height 2021-03-23 18:43:00 185.4 cm [facility] Body weight 2021-03-23 18:43:00 108.863 kg [facility] BMI 2021-03-23 18:43:00 31.66 kg/m2 [facility] Oxygen saturation in 2021-03-23 18:43:00 100 /min [facility] Arterial blood by [facility] Pulse oximetry Branch Respitory Rate 2016-03-03 11:19:00 Memori al [place] Heart Rate 2016-03-03 11:19:00 [facility] [place] Systolic (mm Hg) 2016-03-03 11:19:00 Dago rial [place] Diastolic (mm Hg) 2016-03-03 11:19:00 Mem orial [place] Temperature Oral (F) 2016-03-03 11:19:00 97.5 F [facility] [place] Respitory Rate 2016-03-03 06:42:00 Memori al [place] Heart Rate 2016-03-03 06:42:00 [facility] [place] Systolic (mm Hg) 2016-03-03 06:42:00 Dago rial [place] Diastolic (mm Hg) 2016-03-03 06:42:00 Mem orial [place] Systolic (mm Hg) 2016-03-03 04:18:00 Dago rial [place] Diastolic (mm Hg) 2016-03-03 04:18:00 Mem orial [place] Respitory Rate 2016-03-03 04:18:00 Memori al [place] Temperature Oral (F) 2016-03-03 04:18:00 97.9 F [facility] [place] Heart Rate 2016-03-03 04:18:00 [facility] [place] Temperature Oral (F) 2016-03-03 01:44:00 99 F [facility] [place] Height 2016-03-02 19:25:00 185.42 cm [facility] BMI Calculated 2016-03-02 19:25:00 Rosalina schofield [place] Weight 2016-03-02 19:25:00 [facility] Procedures Procedure Date / Time Performed Performing Clinician [facility] e ASSIGNMENT OF BENEFITS 2021-03-23 20:18:40 Doctor Unassigned, No [facility] Medical [facility] CT CERVICAL SPINE WO 2021-03-23 19:40:56 Devan Banks [facility] LUMBAR SPINE WO 2021-03-23 19:40:56 [facility]an [facility] [place] CONTRAST [facility] Branch CT THORACIC SPINE WO 2021-03-23 19:40:56 Devan Banks [facility] XR ELBOW >3 VW RIGHT 2021-03-23 19:23:58 Devan Banks [facility] NOTICE OF PRIVACY 2021-03-23 18:38:48 Doctor Unassigned, No [facility] Name Medical Branch CONSENT/REFUSAL FOR 2021-03-23 18:38:30 Doctor Unassigned, No Un [facility] DIAGNOSIS AND [facility] Medical [place] TREATMENT Encounters Start End Encounter Admission Attending Care Care Encounter Source Date/Time Date/Time Type Type Clinicians Facility Department ID 2021-03-23 2021-03-23 Emergency X [facility] ERT [id number] Univers 12:44:00 15:13:[address] [facility] 2021-03-23 2021-03-23 Emergency [facility] [id number] Univers 12:44:00 15:13:00 Devan GRANT [id number] i ty [facility] [id number] [facility] [id number] [facility] 084 Branch 2016-03-02 2016-03-03 Emergency [facility] [id number] Memoria 19:18:00 12:01:00 carson Pizarro 00 l [facility] 2016-03-02 2016-03-03 Outpatient ANA Medina [facility] [id number] 13:18:00 06:01:00 [place] 00 Gene Results Test Description Test Time Test Comments Results Result Comments Source DRUG SCREEN 2016-03-02 21:29:00 Test Item Value Reference Range Interpretation Comme nts U Cocaine Scr (test code = U Cocaine Scr) Negative *NA*(03/02/16 3:29 PM) [facility] [id number] 21:29:00 Test Item Value Reference Range Interpretation Comments U Opiate Scr (test Negative *NA*(03/02/16 code = U Opiate Scr) 3:29 PM) [facility] [id number] 21:29:00 Test Item Value Reference Range Interpretation Comments U Cannab Scr (test Negative *NA*(03/02/16 code = U Cannab Scr) 3:29 PM) [facility] [id number] 21:29:00 Test Item Value Reference Range Interpretation Comments U Evelyn Scr (test code Negative *NA*(03/02/16 = U Evelyn Scr) 3:29 PM) [facility] [id number] 21:29:00 Test Item Value Reference Range Interpretation Comments U Amph Scr (test code Negative *NA*(03/02/16 = U Amph Scr) 3:29 PM) [facility] [id number] 21:29:00 Test Item Value Reference Range Interpretation Comments U Benzodia Scr (test Negative *NA*(03/02/16 code = U Benzodia Scr) 3:29 PM) [facility] [id number] 21:29:00 Test Item Value Reference Range Interpretation Comments U Phencyc Scr (test Negative *NA*(03/02/16 code = U Phencyc Scr) 3:29 PM) [facility] [id number] 21:29:00 Test Item Value Reference Range Interpretation Comments UDS Note (test code = See Note *NA*(03/02/16 UDS Note) 3:29 PM) [facility] [id number] 21:29:00 Test Item Value Reference Range Interpretation Comments UA Sq Epi (test code = UA Sq Epi) None Seen [facility] [id number] 21:29:00 Test Item Value Reference Range Interpretation Comments UA Mucus (test code = UA Mucus) Few /LPF [facility] [id number] 21:29:00 Test Item Value Reference Range Interpretation Comments UA RBC (test code = no gt See_Comment [Automa fredrick message] The UA RBC) system which ge nerated this result transmit fredrick reference range : <=2. The reference range was not used to interpr et this result as светлана l/abnormal. [facility] AND [id number] 21:29:00 Test Item Value Reference Range Interpretation Comments UA Turbidity (test code = Clear (03/02/16 3:29 UA Turbidity) PM) [facility] AND [id number] 21:29:00 Test Item Value Reference Range Interpretation Comments UA Color (test code = Yellow *NA*(03/02/16 3:29 UA Color) PM) [facility] AND [id number] 21:29:00 Test Item Value Reference Range Interpretation Comments UA Glucose (test code = UA Negative mg/dL Glucose) [facility] AND [id number] 21:29:00 Test Item Value Reference Range Interpretation Comments UA Protein (test code = UA Negative mg/dL Protein) [facility] AND [id number] 21:29:00 Test Item Value Reference Range Interpretation Comments UA pH (test code = UA pH) 7.0 5.0-8.0 [facility] AND [id number] 21:29:00 Test Item Value Reference Range Interpretation Comments UA Spec Grav (test code = UA Spec Grav) 1.012 [facility] AND [id number] 21:29:00 Test Item Value Reference Range Interpretation Comments UA WBC (test code = no gt See_Comment [Automa fredrick message] The UA WBC) system which ge nerated this result transmit fredrick reference range : <=5. The reference range was not used to interpr et this result as светлана l/abnormal. [facility] AND [id number] 21:29:00 Test Item Value Reference Range Interpretation Comments UA Leuk Est (test Negative (03/02/16 3:29 code = UA Leuk Est) PM) [facility] AND [id number] 21:29:00 Test Item Value Reference Range Interpretation Comments UA Nitrite (test code Negative (03/02/16 3:29 = UA Nitrite) PM) [facility] AND [id number] 21:29:00 Test Item Value Reference Range Interpretation Comments UA Ketones (test code = UA Negative mg/dL Ketones) [facility] AND [id number] 21:29:00 Test Item Value Reference Range Interpretation Comments UA Urobilinogen (test code = UA 4.0 0.1-1.0 Urobilinogen) [facility] AND [id number] 21:29:00 Test Item Value Reference Range Interpretation Comments UA Blood (test code = Negative (03/02/16 3:29 UA Blood) PM) [facility] AND [id number] 21:29:00 Test Item Value Reference Range Interpretation Comments UA Bili (test code = Negative *NA*(03/02/16 UA Bili) 3:29 PM) [facility] [id number] 21:06:00 Test Item Value Reference Range Interpretation Comments Eosinophils (test code = 1.1 See_Comment [A utomated message] The Eosinophils) system which ge nerated this result tra nsmitted reference range : <=4.0. The reference r joya was not used to int erpret this result as normal/abnormal . [facility] [id number] 21:06:00 Test Item Value Reference Range Interpretation Comments Monocytes (test code = Monocytes) 8.6 2.0-12.0 [facility] [id number] 21:06:00 Test Item Value Reference Range Interpretation Comments RBC Morph (test code = Normal (03/02/16 3:06 PM) RBC Morph) [facility] [id number] 21:06:00 Test Item Value Reference Range Interpretation Comments RDW (test code = RDW) 13.2 11.5-14.5 [facility] [id number] 21:06:00 Test Item Value Reference Range Interpretation Comments MCHC (test code = MCHC) 34.9 32.0-36.0 [facility] [id number] 21:06:00 Test Item Value Reference Range Interpretation Comments Hgb (test code = Hgb) 16.0 14.0-18.0 [facility] [id number] 21:06:00 Test Item Value Reference Range Interpretation Comments Hct (test code = Hct) 45.8 42.0-54.0 [facility] [id number] 21:06:00 Test Item Value Reference Range Interpretation Comments MCV (test code = MCV) 90.9 80.0-94.0 [facility] [id number] 21:06:00 Test Item Value Reference Range Interpretation Comments MCH (test code = MCH) 31.8 pg 27.0-31.0 [facility] [id number] 21:06:00 Test Item Value Reference Range Interpretation Comments WBC (test code = WBC) 6.4 3.7-10.4 [facility] [id number] 21:06:00 Test Item Value Reference Range Interpretation Comments RBC (test code = RBC) 5.04 4.70-6.10 [facility] [id number] 21:06:00 Test Item Value Reference Range Interpretation Comments MPV (test code = MPV) 8.4 7.4-10.4 [facility] [id number] 21:06:00 Test Item Value Reference Range Interpretation Comments Platelet (test code = Platelet) 194 133-450 [place] [id number] 21:06:00 Test Item Value Reference Range Interpretation Comments Acetaminoph Lvl (test code = (03/02/16 3:06 PM) 10-20 Acetaminoph Lvl) [place] [id number] 21:06:00 Test Item Value Reference Range Interpretation Comments Salicylate Lvl (test <1.7 mg/dL See_Comment [Autom ated message] code = Salicylate The system which Lvl) generated this result transmitted ref erence range: <=30.0. The reference range was not used to int erpret this result as normal/abnormal . [place] [id number] 21:06:00 Test Item Value Reference Range Interpretation Comments Etoh (%) (test code = Etoh (%)) <0.003 % [place] [id number] 21:06:00 Test Item Value Reference Range Interpretation Comments Ethanol Lvl (test code = Ethanol <3.0 mg/dL Lvl) [facility] [id number] 21:06:00 Test Item Value Reference Range Interpretation Comments Lipase Lvl (test code = Lipase Lvl) 180 73-393 [facility]inte[facility] [id number] 21:06:00 Test Item Value Reference Range Interpretation Comments Calcium Lvl (test code = Calcium Lvl) 9.2 8.5-10.5 [facility]2017-01-05 21:06:00 Test Item Value Reference Range Interpretation Comments CO2 (test code = CO2) 27 24-32 [facility]2017-01-05 21:06:00 Test Item Value Reference Range Interpretation Comments Chloride Lvl (test code = Chloride Lvl) 101 95-109 [facility]2017-01-05 21:06:00 Test Item Value Reference Range Interpretation Comments Potassium Lvl (test code = Potassium 4.1 3.5-5.1 Lvl) [facility]2017-01-05 21:06:00 Test Item Value Reference Range Interpretation Comments eGFR (test code = eGFR) 80 [facility]2017-01-05 21:06:00 Test Item Value Reference Range Interpretation Comments Creatinine Lvl (test code = Creatinine 1.03 0.50-1.40 Lvl) [facility]2017-01-05 21:06:00 Test Item Value Reference Range Interpretation Comments BUN (test code = BUN) 12 7-22 [facility]2017-01-05 21:06:00 Test Item Value Reference Range Interpretation Comments Sodium Lvl (test code = Sodium Lvl) 140 135-145 [facility]2017-01-05 21:06:00 Test Item Value Reference Range Interpretation Comments Glucose Lvl (test code = Glucose Lvl) 91 70-99 [facility]2017-01-05 21:06:00 Test Item Value Reference Range Interpretation Comments Bili Total (test code = Bili Total) 0.8 0.2-1.3 [facility]2017-01-05 21:06:00 Test Item Value Reference Range Interpretation Comments ALT (test code = ALT) 90 See_Comment [Auto mated message] The system which ge nerated this result transmit fredrick reference range : <=65. The reference range was not used to interpr et this result as светлана l/abnormal. [facility]2017-01-05 21:06:00 Test Item Value Reference Range Interpretation Comments Alk Phos (test code = Alk Phos) 88 39-136 [facility]2017-01-05 21:06:00 Test Item Value Reference Range Interpretation Comments AST (test code = AST) 59 See_Comment [Auto mated message] The system which ge nerated this result transmit fredrick reference range : <=37. The reference range was not used to interpr et this result as светлана l/abnormal. [facility]2017-01-05 21:06:00 Test Item Value Reference Range Interpretation Comments Total Protein (test code = Total 8.2 6.4-8.4 Protein) [facility]2017-01-05 21:06:00 Test Item Value Reference Range Interpretation Comments Albumin Lvl (test code = Albumin Lvl) 4.1 3.5-5.0 [facility]2017-01-05 21:06:00 Test Item Value Reference Range Interpretation Comments AGAP (test code = AGAP) 16.1 10.0-20.0 [facility]2017-01-05 21:06:00 Test Item Value Reference Range Interpretation Comments B/C Ratio (test code = B/C Ratio) 12 6-25 [facility]2017-01-05 21:06:00 Test Item Value Reference Range Interpretation Comments A/G Ratio (test code = A/G Ratio) 1.0 0.7-1.6 [facility]2017-01-05 21:06:00 Test Item Value Reference Range Interpretation Comments Globulin (test code = Globulin) 4.1 2.7-4.2 [facility] [id number] 21:06:00 Test Item Value Reference Range Interpretation Comments Monocytes # (test code 0.5 See_Comment [Aut omated message] The = Monocytes #) system which generated this result tra nsmitted reference range : <=0.8. The reference r joya was not used to int erpret this result as normal/abnormal . [facility] [id number] 21:06:00 Test Item Value Reference Range Interpretation Comments Eosinophils # (test code 0.1 See_Comment [A utomated message] The = Eosinophils #) system whic h generated this result tra nsmitted reference range : <=0.5. The reference r joya was not used to int erpret this result as normal/abnormal . [facility] [id number] 21:06:00 Test Item Value Reference Range Interpretation Comments Lymphocytes # (test code = Lymphocytes 1.3 1.0-5.5 #) [facility] [id number] 21:06:00 Test Item Value Reference Range Interpretation Comments Segs-Bands # (test code = Segs-Bands #) 4.4 1.5-8.1 [facility] [id number] 21:06:00 Test Item Value Reference Range Interpretation Comments Basophils (test code = 0.6 See_Comment [Aut omated message] The Basophils) system which ge nerated this result tra nsmitted reference range : <=1.0. The reference r joya was not used to int erpret this result as normal/abnormal . [facility] [id number] 21:06:00 Test Item Value Reference Range Interpretation Comments Segs (test code = Segs) 69.9 45.0-75.0 [facility] [id number] 21:06:00 Test Item Value Reference Range Interpretation Comments Lymphocytes (test code = Lymphocytes) 19.8 20.0-40.0 [facility] [id number] 21:06:00 Test Item Value Reference Range Interpretation Comments Plt Morph (test code = Clumped (03/02/16 3:06 Plt Morph) PM) [facility]
[2022-01-24] MEDS ORDERED: dexAMETHasone 10 MG/ML VIAL ONE (20:39)
[2022-01-24] MEDS ORDERED: KETOROLAC 30 MG/ML INJ ONE (20:40)
--- NOTE | 2022-01-24 21:25 | RAD REPORT ---
EXAM DESCRIPTION: US - Extremity Venous Uni Ltd - 01/24/2022 9:18 pm CLINICAL HISTORY: PAIN Leg swelling and edema. COMPARISON: Extremity Venous Uni Ltd dated 11/05/2020 FINDINGS: Left lower extremity venous system was interrogated with Doppler technique. Normal flow, c ompressibility and augmentation was noted. There is no DVT present. IMPRESSION: No evidence of left lower extremity deep venous thrombosis.
--- NOTE | 2022-01-24 21:26 | RAD REPORT ---
EXAM DESCRIPTION: US - Lower Extremity Artery Uni Ltd - 01/24/2022 9:18 pm CLINICAL HISTORY: PAIN COMPARISON: Lower Extremity Artery Uni Ltd dated 11/05/2020 FINDINGS: Grayscale, color and power Doppler interrogation of the left lower extremity arterial syst em was performed. Triphasic waveforms are seen throughout the left lower extremity arterial system. No significant sten osis or occlusion seen. IMPRESSION: Normal examination.
--- NOTE | 2022-01-24 22:08 | ER ---
Nurse's Notes [facility] Name: Kunal Russell Age: 61 yrs Sex: Male : 1960 Arrival Date: 01/24/2022 Time: 19:51 Bed 14 Private MD: Diagnosis: Sciatica, left side;Hypertensive heart disease without heart failure Presentation: 01/24 20:01 Chief complaint: Patient states: Left leg pain X 5 days. Pt reports doctor putting him tw5 on blood thinners due to possible blood clot in left leg. Coronavirus screen: At this time, the client does not indicate any symptoms associated with coronavirus-19. Ebola Screen: No symptoms or risks identified at this time. Initial Sepsis Screen: Does the patient meet any 2 criteria? No. Patient's initial sepsis screen is negative. Does the patient have a suspected source of infection? No. Patient's initial sepsis screen is negative. Risk Assessment: Do you want to hurt yourself or someone else? Patient reports no desire to harm self or others. Onset of symptoms was January 24, 2022 at 20:02. 20:01 Method Of Arrival: Ambulatory tw5 20:01 Acuity: HUY 3 tw5 Triage Assessment: 20:02 General: Appears in no apparent distress. comfortable, Behavior is calm, cooperative, tw5 appropriate for age. Pain: Complains of pain in left leg Pain does not radiate. Pain currently is 10 out of 10 on a pain scale. EENT: No signs and/or symptoms were reported regarding the EENT system. Neuro: Level of Consciousness is awake, alert, obeys commands, Oriented to person, place, time, situation, Appropriate for age. Cardiovascular: Capillary refill < 3 seconds Patient's skin is warm and dry. Respiratory: Airway is patent Respiratory effort is even, unlabored. GI: Abdomen is flat, non-distended. : No signs and/or symptoms were reported regarding the genitourinary system. Historical: - Allergies: 20:02 Codeine; tw5 20:02 Demerol; tw5 20:02 Morphine; tw5 20:02 PENICILLINS; tw5 20:02 Phenergan; tw5 - PMHx: 20:02 Hypertension; tw5 - Immunization history:: Adult Immunizations up to date, Client reports receiving the 2nd dose of the Covid vaccine. - Social history:: Smoking status: Patient denies any tobacco usage or history of. Patient/guardian denies using alcohol. Screenin:00 Abuse screen: Denies threats or abuse. Nutritional screening: No deficits noted. ke1 Tuberculosis screening: No symptoms or risk factors identified. Fall Risk None identified. Assessment: 23:04 Reassessment: PA discussed need for BP management with patient. ke1 Vital Signs: 20:01 BP 191 / 94; Pulse 69; Resp 18; Temp 97.3(TE); Pulse Ox 98% on R/A; Weight 108.86 kg; tw5 Height 6 ft. 1 in. (185.42 cm); Pain 10/10; 22:27 BP 176 / 105; Pulse 68; Resp 17; Temp 97.2(O); Pulse Ox 99% on R/A; Pain 0/10; ke1 20:01 Body Mass Index 31.66 (108.86 kg, 185.42 cm) tw5 ED Course: 19:51 Patient arrived in ED. ja2 19:53 Basilio Verde PA is PHCP. cp 19:53 Basilio Watkins MD is Attending Physician. cp 20:00 Placed in gown. ke1 20:02 Triage completed. tw5 20:02 Arm band placed on right wrist. tw5 20:21 Chrystal Wiseman, RN is Primary Nurse. ke1 21:20 US Extremity Venous Unilateral Ltd In Process Unspecified. EDMS 21:20 US LE Artery Uni Ltd In Process Unspecified. EDMS 23:01 No provider procedures requiring assistance completed. ke1 23:02 Patient did not have IV access during this emergency room visit. ke1 Administered Medications: 21:18 Drug: Ketorolac 60 mg Route: IM; Site: right gluteus; jj7 21:19 Drug: Decadron (dexamethasone) 10 mg Route: IM; Site: right gluteus; jj7 Medication: 23:02 VIS not applicable for this client. ke1 Outcome: 22:08 Discharge ordered by . cp 23:01 Discharged to home ambulatory. ke1 23:01 Condition: good 23:01 Discharge instructions given to patient. 23:05 Patient left the ED. ke1 Signatures: Dispatcher [employer] EDCA Basilio Verde PA PA cp Alexander, Jessica ja2 Tanisha Fischer tw5 Chrystal Wiseman RN RN ke1 Chan Cortez RN RN jj7 Corrections: (The following items were deleted from the chart) : 22:27 BP 176 / 105; ke1 ke1
--- NOTE | 2022-01-24 22:08 | EDPHYS ---
Physician Documentation [facility] Name: Kunal Russell Age: 61 yrs Sex: Male : 1960 Arrival Date: 01/24/2022 Time: 19:51 Bed 14 Private MD: Basilio Eddy HPI: 01/24 20:35 This 61 yrs old Male presents to ER via Ambulatory with complaints of Leg Pain, Feet cp Swelling. 20:35 The patient presents with pain, swelling, tenderness. The complaints affect the left cp hamstring, posterior aspect of left knee, left calf and left Achilles. Context: resulted from an unknown cause, the patient can partially bear weight, the patient is able to ambulate, with moderate difficulty, Problem is a result from a previous injury: No. Onset: The symptoms/episode began/occurred 1 month(s) ago. Patient reports pain to left leg behind knee and back of lower and upper leg for past 1 month. Saw PCP who started him of blood thinner Xarelto and referred him to measurement superintendent with concern for possible blockage in left leg. Patient reports having tests performed but does not know results. 20:35 Associated signs and symptoms: Pertinent positives: pain to lower left buttock, cp Pertinent negatives numbness, bowel and/or bladder incontinence, saddle anesthesia. 20:35 Treatment prior to arrival includes: no previous treatment. cp Historical: - Allergies: 20:02 Codeine; tw5 20:02 Demerol; tw5 20:02 Morphine; tw5 20:02 PENICILLINS; tw5 20:02 Phenergan; tw5 - PMHx: 20:02 Hypertension; tw5 - Immunization history:: Adult Immunizations up to date, Client reports receiving the 2nd dose of the Covid vaccine. - Social history:: Smoking status: Patient denies any tobacco usage or history of. Patient/guardian denies using alcohol. ROS: 20:40 Constitutional: Negative for body aches, chills, fever, poor PO intake. cp 20:40 Eyes: Negative for injury, pain, redness, and discharge. cp 20:40 Neck: Negative for pain with movement, pain at rest, stiffness. 20:40 Cardiovascular: Negative for chest pain, edema, palpitations. 20:40 Respiratory: Negative for cough, shortness of breath, wheezing. 20:40 Abdomen/GI: Negative for abdominal pain, nausea, vomiting, and diarrhea, black/tarry stool, bowel incontinence. 20:40 Back: Negative for pain at rest, pain with movement. 20:40 : Negative for urinary symptoms, flank pain, bladder incontinence, testicular pain 20:40 MS/extremity: Positive for pain, of the left calf and posterior aspect of left knee and posterior aspect left upper leg and lower buttock. 20:40 Neuro: Positive for numbness, of the left foot, Negative for altered mental status, weakness. 20:40 All other systems are negative. Exam: 20:45 Constitutional: The patient appears in no acute distress, alert, awake, cp non-diaphoretic, well developed, well nourished, uncomfortable. 20:45 Head/Face: Normocephalic, atraumatic. cp 20:45 Eyes: Periorbital structures: appear normal, Conjunctiva: normal, no exudate, no injection, Sclera: no appreciated abnormality, Lids and lashes: appear normal, bilaterally. 20:45 ENT: External ear(s): are unremarkable, Nose: is normal, Mouth: Lips: moist, Oral mucosa: pink and intact, moist, Posterior pharynx: Airway: no evidence of obstruction, patent. 20:45 Neck: ROM/movement: is normal, is supple, without pain, no range of motions limitations. 20:45 Chest/axilla: Inspection: normal. 20:45 Cardiovascular: Rate: normal, Rhythm: regular, Edema: is not appreciated, JVD: is not appreciated. 20:45 Respiratory: the patient does not display signs of respiratory distress, Respirations: normal, no use of accessory muscles, no retractions, labored breathing, is not present, Breath sounds: are clear throughout, no decreased breath sounds, no stridor, no wheezing. 20:45 Abdomen/GI: Inspection: abdomen appears normal, Palpation: abdomen is soft and non-tender, in all quadrants. 20:45 Back: pain, is absent, ROM is normal. 20:45 Musculoskeletal/extremity: Extremities: grossly normal except: noted in the posterior aspect of left knee and left hamstring and left foot and left calf: pain, tenderness, ROM: pain with passive left knee extension while seated, Pulses: palpable left dorsalis pedis, Perfusion: the extremity is normally perfused throughout, Calf tenderness, that is moderate, of the left lower extremeity, Edema, is not appreciated, the left foot Tingling of extremity. 20:45 Skin: cellulitis, is not appreciated, no rash present. 20:45 Neuro: Motor: moves all fours, strength is normal, Gait: is steady, Deep tendon reflexes are 2+ (normal) in the right patellar, right Achilles, left patellar and left Achilles. Vital Signs: 20:01 BP 191 / 94; Pulse 69; Resp 18; Temp 97.3(TE); Pulse Ox 98% on R/A; Weight 108.86 kg; tw5 Height 6 ft. 1 in. (185.42 cm); Pain 10/10; 22:27 BP 176 / 105; Pulse 68; Resp 17; Temp 97.2(O); Pulse Ox 99% on R/A; Pain 0/10; ke1 20:01 Body Mass Index 31.66 (108.86 kg, 185.42 cm) tw5 MDM: 20:10 Patient medically screened. cp 21:00 Differential diagnosis: DVT, PAD, sciatica, lumbar radiculopathy, cauda equina, spinal cp stenosis, low back pain, bulging disc. 22:08 Data reviewed: vital signs, nurses notes, radiologic studies, ultrasound. cp 22:08 Counseling: I had a detailed discussion with the patient and/or guardian regarding: the cp historical points, exam findings, and any diagnostic results supporting the discharge/admit diagnosis, radiology results, the need for outpatient follow up, a family practitioner, to return to the emergency department if symptoms worsen or persist or if there are any questions or concerns that arise at home. Response to treatment: Pain improved with meds. Will discharge to home for continued monitoring. 01/24 20:33 Order name: Extremity Venous Unilateral Ltd; Complete Time: 21:32 cp 01/24 21:33 Interpretation: Report reviewed. cp 01/24 20:33 Order name: LE Artery Uni Ltd; Complete Time: 21:32 cp 01/24 21:33 Interpretation: Report reviewed. cp 01/24 21:54 Order name: Blood Pressure Recheck; Complete Time: 23:00 cp Administered Medications: 21:18 Drug: Ketorolac 60 mg Route: IM; Site: right gluteus; jj7 21:19 Drug: Decadron (dexamethasone) 10 mg Route: IM; Site: right gluteus; jj7 Disposition Summary: 01/24/22 22:08 Discharge Ordered Location: Home cp Problem: an ongoing problem cp Symptoms: have improved cp Condition: Stable cp Diagnosis - Sciatica, left side cp - Hypertensive heart disease without heart failure cp Followup: cp - With: Private Physician - When: 2 - 3 days - Reason: Recheck today's complaints Discharge Instructions: - Discharge Summary Sheet cp - Hypertension, Adult cp - Sciatica cp - Back Exercises cp - Form - Blood Pressure Record Sheet cp - How to Take Your Blood Pressure cp Forms: - Medication Reconciliation Form cp - Thank You Letter cp - Antibiotic Education cp - Prescription Opioid Use cp Prescriptions: - Medrol (Rony) 4 mg Oral Tablets, Dose Pack - take 1 tablet by ORAL route as directed - follow package instructions; 1 cp packet; Refills: 0, Product Selection Permitted - methocarbamol 500 mg Oral Tablet - take 1 tablet by ORAL route 4 times per day; 30 tablet; Refills: 0, Product cp Selection Permitted Addendum: 01/29/2022 07:49 Co-signature as Attending Physician, Basilio Watkins MD I agree with the assessment and c brady plan of care. Signatures: Dispatcher [employer] Basilio Reeder MD MD cha Page, Corey, PA Tanisha Baugh cp tw5 Chan Cortez RN RN jj7
[2022-01-24 23:11] VITALS: BP 176/105; TEMP 97.2; O2SAT 99
== END 2022-01-24 23:05 | disposition home or self-care (01) ==
LOC: ER 19:47
DX: M54.32 Sciatica, left side (principal); I11.9 Hypertensive heart disease without heart failure; Z88.0 Allergy status to penicillin; Z88.5 Allergy status to narcotic agent; Z88.8 Allergy status to other drugs, medicaments and biological substances
CPT/HCPCS: 93926; 93971; 96372; 99283; J1100

== ENCOUNTER 2022-02-13 15:37 | Emergency (ER) | payer BC ==
--- OUTSIDE RECORDS SUMMARY | 2022-02-13 15:40 | XMS REPORT | Continuity of Care Document ---
:1960 Author Organization [facility] t Address [address] [place] [address] Care Team Providers Name Role Phone MICHELLE JACKSON JR Primary Care Physician Unavailable DEVAN BANKS Attending Clinician Unavailable Devan Banks MD Attending Clinician Anette Medina Attending Clinician DEVAN BANKS Admitting Clinician Unavailable Payers Payer Name Policy Type Policy Number Effective Date Expiration Date [id number] 00:00:00 Problems Condition Condition Condition Status Onset Resolution Last Treating Co mments Source Name Details Category Date Date Treatment Clinician Date SUICIDAL SUICIDAL Diagnosis Active 2016-03-10 Memoria Active 03-02 22:13:00 l 03/02/2016 00:00: Dwaine mcgill [address] Hypertensi Hypertens Problem Resolve 2016-03-06 Memoria ve darryn d 03:40:30 l disorder, disorder, Herm jn systemic systemic arterial arterial (disorder) (disorder) Resolved Problem 03/06/2016 non-compli ant [facility] Allergies, Adverse Reactions, Alerts Allergy Allergy Status Severity Reaction(s) Onset Inactive Treating Comm ents Source Name Type Date Date Clinician Meperidi Propensi Active Nausea Univer s ne ty to and/or 1-26 ity of adverse Vomiting 00:00: [place] reaction 00 [facility] Morphine Propensi Active Rash Univer s ty to 1-26 ity of adverse 00:00: [place] reaction Medical s Branch Penicill Propensi Active Unknown - Uni vers ins ty to See comments 03-23 ity of adverse 00:00: [place] reaction [facility] s Branch MEPERIDI DRUG Active N/V Univers NE INGREDI 03-23 ity of 00:00: Medical Branch MORPHINE DRUG Active Rash Univers INGREDI 03-23 ity of 00:00: Medical Branch PENICILL Drug Active Unknown-Cmnt Un oscar INS Class 03-23 ity of 00:00: Medical Branch Demerol Demerol Active Memoria HCl HCl l [place] morphine morphine Active Memori a l [place] penicill penicill Active Memori a ins ins l [place] Social History Social Habit Start Date Stop Date Quantity Comments Source Exposure to Unable to assess Univers ity of SARS-CoV-2 [facility] (event) [place] Sex Assigned At [birth year] Univers[facility] 00:00:00 00:00:00 [facility] Smoking Status Start Date Stop Date Source Unknown if ever smoked [facility] y [facility] Social History [facility] Medications Ordered Filled Start Stop Current Ordering Indication Dosage Frequency Signature Comments Components Source Medication Medication Date Date Medication? Clinician (SIG) Name Name predniSONE Yes [id number] 40mg Take 2 Univers 20 mg 03-23 9108 tablets by ity of tablet 00:00: mouth 00 daily. [facility] multivitami No Notes: Dago francisco n 03-03 (Same l 15:00: as:Thera) multivitami No Notes: Dago francisco n - (Same l 15:00: as:Thera) Chlordiazep No 50 mg, Dago francisco oxide 03-03 Route: PO, l Hydrochlori 04:24: Drug form: [place] de 25 MG 00 CAP, ONCE, Oral Dosing Capsule Weight 109.091, kg, Alcohol Withdrawal , Start date: 03/02/16 22:24:00 [employer], Stop date: 03/02/16 22:24:00 [employer] Chlordiazep No 50 mg, [place]ago francisco oxide 03-03 Route: PO, l Hydrochlori 04:24: Drug form: [place] de 25 MG 00 CAP, ONCE, Oral Dosing Capsule Weight 109.091, kg, Alcohol Withdrawal , Start date: 03/02/16 22:24:00 [employer], Stop date: 03/02/16 22:24:00 [employer] Ibuprofen No 600 mg, Memor ia 1- Route: PO, l 01:47: Drug form: [place] 00 TAB, ONCE, Dosing Weight 109.091, kg, Priority: STAT, Start date: 03/02/16 19:47:00 [employer], Stop date: 03/02/16 19:47:00 [employer] Ibuprofen No 600 mg, Memor ia 03-03 Route: PO, l 01:47: Drug form: [place] 00 TAB, ONCE, Dosing Weight 109.091, kg, Priority: STAT, Start date: 03/02/16 19:47:00 [employer], Stop date: 03/02/16 19:47:00 [employer] Lisinopril No Notes: Memor ia 1-05 (Same as: l 22:00: Prinivil, [place] 00 Zestril) Lisinopril No Notes: Memor ia 1-05 (Same as: l 22:00: Prinivil, [place] 00 Zestril) multivitami No Notes: [place] francisco n 1-05 (Same l 21:53: as:Thera) WASTE: F/P - Black; E - Municipal Trash Bin Take with food. multivitami No Notes: [place] franc[place] n 1-05 (Same l 21:53: as:Thera) [place] WASTE: F/P - Black; E - Municipal Trash Bin Take with food. Ativan No Notes: Memoria 1-05 (Same as: l 20:25: Ativan) [place] 00 Ativan No Notes: Memoria 1-05 (Same as: l 20:25: Ativan) Thiamine No Notes: Memoria 1-05 (Same As: l 20:24: Vitamin B1) Folic Acid No Notes: Memor ia 1-05 (Same as: l 20:24: Folvite) Thiamine No Notes: Memoria 1-05 (Same As: l 20:24: Vitamin B1) Folic Acid 2016- No Notes: Memor ia -05 (Same as: l 20:24: Folvite) Valium 2016-0 No 5 mg, Memoria 03-02 Route: l 20:23: IVP, Drug form: INJ, ONCE, Dosing Weight 109.091, kg, Priority: STAT, Start date: 03/02/16 14:23:00 [employer], Stop date: 03/02/16 14:23:00 [employer] Valium 2016-0 No 5 mg, Memoria 03-02 Route: l 20:23: IVP, Drug form: INJ, ONCE, Dosing Weight 109.091, kg, Priority: STAT, Start date: 03/02/16 14:23:00 [employer], Stop date: 03/02/16 14:23:00 [employer] Zofran 2016- No Notes: Memoria 03-02 (Same as: l 20:19: Zofran) MEDICATION WASTE Product Size: 4 mg Product Wasted: _0__ mg Zofran 2016- No Notes: Memoria 03-02 (Same as: l 20:19: Zofran) MEDICATION WASTE Product Size: 4 mg Product Wasted: _0__ mg Sodium 2016- No 1,000 mL, Memori a Chloride -05 1000 l 0.154 20:18: ml/hr, [place] MEQ/ML 00 Infuse Injectable Over: 1 Solution hr, Route: IV, 1,000, Drug form: INJ, ONCE, Priority: STAT, Dosing Weight 109.091 kg, Start date: 03/02/16 14:18:00 [employer], Duration: 1 doses or times, Stop date: 03/02/16 14:18:00 [employer] Chlordiazep 2016- No 50 mg, 2 Me moria oxide 05 cap, l 20:18: Route: PO, 00 Drug form: CAP, ONCE, Dosing Weight 109.091, kg, Priority: STAT, Start date: 03/02/16 14:18:00 [employer]EM[employer], Stop date: 03/02/16 14:18:00 [employer] Sodium 2017-0 No 1,000 mL, Memori a Chloride 1-05 1000 l 0.154 20:18: ml/hr, [place] MEQ/ML 00 Infuse Injectable Over: 1 Solution hr, Route: IV, 1,000, Drug form: INJ, ONCE, Priority: STAT, Dosing Weight 109.091 kg, Start date: 03/02/16 14:18:00 J[employer]EM[employer], Duration: 1 doses or times, Stop date: 03/02/16 14:18:00 [employer] Chlordiazep 2017-0 No 50 mg, 2 Me moria oxide -05 cap, l 20:18: Route: PO, [place] 00 Drug form: CAP, ONCE, Dosing Weight 109.091, kg, Priority: STAT, Start date: 03/02/16 14:18:00 [employer], Stop date: 03/02/16 14:18:00 [employer] Vital Signs Vital Name Observation Time Observation Value Comments Source Systolic blood 2021-03-23 18:43:00 182 mm[Hg] [facility] Diastolic blood 2021-03-23 18:43:00 103 mm[Hg] [facility] Heart rate 2021-03-23 18:43:00 88 /min [facility] Body temperature 2021-03-23 18:43:00 36.67 [facility] Respiratory rate 2021-03-23 18:43:00 18 /min [facility] Body height 2021-03-23 18:43:00 185.4 cm [facility] Body weight 2021-03-23 18:43:00 108.863 kg [facility] BMI 2021-03-23 18:43:00 31.66 kg/m2 [facility] Oxygen saturation in 2021-03-23 18:43:00 100 /min [facility] Arterial blood by [facility] Pulse oximetry Branch Respitory Rate 2016-03-03 11:19:00 Rosalina Colunga Heart Rate 2016-03-03 11:19:00 Marino Pizarro Systolic (mm Hg) 2016-03-03 11:19:00 Dago Pizarro Diastolic (mm Hg) 2016-03-03 11:19:00 Danita orial [place] Temperature Oral (F) 2016-03-03 11:19:00 97.5 F [facility] [place] Respitory Rate 2016-03-03 06:42:00 Memori al [place] Heart Rate 2016-03-03 06:42:00 [facility] [place] Systolic (mm Hg) 2016-03-03 06:42:00 Dago rial [place] Diastolic (mm Hg) 2016-03-03 06:42:00 Mem orial [place] Diastolic (mm Hg) 2016-03-03 04:18:00 Mem orial [place] Respitory Rate 2016-03-03 04:18:00 Memori al [place] Temperature Oral (F) 2016-03-03 04:18:00 97.9 F [facility] [place] Heart Rate 2016-03-03 04:18:00 [facility] [place] Systolic (mm Hg) 2016-03-03 04:18:00 Dago rial [place] Temperature Oral (F) 2016-03-03 01:44:00 99 F [facility] [place] Height 2016-03-02 19:25:00 185.42 cm [facility] [place] BMI Calculated 2016-03-02 19:25:00 Memori al [place] Weight 2016-03-02 19:25:00 [facility] [place] Procedures Procedure Date / Time Performed Performing Clinician [facility] e ASSIGNMENT OF BENEFITS 2021-03-23 20:18:40 Doctor Unassigned, No [facility] Name Medical Branch CT CERVICAL SPINE WO 2021-03-23 19:40:56 Devan Banks [facility] CONTRAST Medical Branch CT LUMBAR SPINE WO 2021-03-23 19:40:56 [facility] THORACIC SPINE WO 2021-03-23 19:40:56 Devan Banks [facility] CONTRAST Medical Branch XR ELBOW >3 VW RIGHT 2021-03-23 19:23:58 Devan Banks [facility] Medical [place] NOTICE OF PRIVACY 2021-03-23 18:38:48 Doctor Unassigned, No [facility] PRACTICES Name Medical Branch CONSENT/REFUSAL FOR 2021-03-23 18:38:30 Doctor Unassigned, No [facility] Name Medical Branch TREATMENT Encounters Start End Encounter Admission Attending Care Care Encounter Source Date/Time Date/Time Type Type Clinicians Facility Department ID 2021-03-23 2021-03-23 Emergency X MILAGRO BANKS ERT [id number] Univers 12:44:00 15:13:00 DEVAN sanchez [facility] 2021-03-23 2021-03-23 Emergency Adonay, [facility] [id number] Univers 12:44:00 15:13:00 Devan [place] [id number] i [facility] [id number] [facility] [id number] [address] 2016-03-02 2016-03-03 Emergency nullFlavo [facility] [id number] Memoria 19:18:00 12:01:[address] 2016-03-02 2016-03-03 Emergency nullFlavo [facility] [id number] Memoria 19:18:00 12:01:[address] 2016-03-02 2016-03-03 Outpatient Carol [facility] [id number] 13:18:00 06:01:00 [place] 00 Gene Results Test Description Test Time Test Comments Results Result Comments Source DRUG SCREEN 2016-03-02 21:29:00 Test Item Value Reference Range Interpretation Comme nts U Cocaine Scr (test code = U Cocaine Scr) Negative *NA*(03/02/16 3:29 PM) [facility] [id number] 21:29:00 Test Item Value Reference Range Interpretation Comments U Opiate Scr (test Negative *NA*(03/02/16 code = U Opiate Scr) 3:29 PM) [facility] [id number] 21:29:00 Test Item Value Reference Range Interpretation Comments U Cannab Scr (test Negative *NA*(03/02/16 code = U Cannab Scr) 3:29 PM) [facility] [id number] 21:29:00 Test Item Value Reference Range Interpretation Comments U Evelyn Scr (test code Negative *NA*(03/02/16 = U Evelyn Scr) 3:29 PM) [facility] [id number] 21:29:00 Test Item Value Reference Range Interpretation Comments U Amph Scr (test code Negative *NA*(03/02/16 = U Amph Scr) 3:29 PM) [facility] [id number] 21:29:00 Test Item Value Reference Range Interpretation Comments U Benzodia Scr (test Negative *NA*(03/02/16 code = U Benzodia Scr) 3:29 PM) [facility] [id number] 21:29:00 Test Item Value Reference Range Interpretation Comments U Phencyc Scr (test Negative *NA*(03/02/16 code = U Phencyc Scr) 3:29 PM) [facility] [id number] 21:29:00 Test Item Value Reference Range Interpretation Comments UDS Note (test code = See Note *NA*(03/02/16 UDS Note) 3:29 PM) [facility] [id number] 21:29:00 Test Item Value Reference Range Interpretation Comments UA Sq Epi (test code = UA Sq Epi) None Seen [facility] [id number] 21:29:00 Test Item Value Reference Range Interpretation Comments UA Mucus (test code = UA Mucus) Few /LPF [facility] [id number] 21:29:00 Test Item Value Reference Range Interpretation Comments UA RBC (test code = no gt See_Comment [Automa fredrick message] The UA RBC) system which ge nerated this result transmit fredrick reference range : <=2. The reference range was not used to interpr et this result as светлана l/abnormal. [facility] [id number] 21:29:00 Test Item Value Reference Range Interpretation Comments UA Turbidity (test code = Clear (03/02/16 3:29 UA Turbidity) PM) [facility] [id number] 21:29:00 Test Item Value Reference Range Interpretation Comments UA Color (test code = Yellow *NA*(03/02/16 3:29 UA Color) PM) [facility] [id number] 21:29:00 Test Item Value Reference Range Interpretation Comments UA Glucose (test code = UA Negative mg/dL Glucose) [facility] [id number] 21:29:00 Test Item Value Reference Range Interpretation Comments UA Protein (test code = UA Negative mg/dL Protein) [facility] [id number] 21:29:00 Test Item Value Reference Range Interpretation Comments UA pH (test code = UA pH) 7.0 5.0-8.0 [facility] [id number] 21:29:00 Test Item Value Reference Range Interpretation Comments UA Spec Grav (test code = UA Spec Grav) 1.012 [facility] [id number] 21:29:00 Test Item Value Reference Range Interpretation Comments UA WBC (test code = no gt See_Comment [Automa fredrick message] The UA WBC) system which ge nerated this result transmit fredrick reference range : <=5. The reference range was not used to interpr et this result as светлана l/abnormal. [facility] AND [id number] 21:29:00 Test Item Value Reference Range Interpretation Comments UA Leuk Est (test Negative (03/02/16 3:29 code = UA Leuk Est) PM) [facility] [id number] 21:29:00 Test Item Value Reference Range Interpretation Comments UA Nitrite (test code Negative (03/02/16 3:29 = UA Nitrite) PM) [facility] AND [id number] 21:29:00 Test Item Value Reference Range Interpretation Comments UA Ketones (test code = UA Negative mg/dL Ketones) [facility] AND [id number] 21:29:00 Test Item Value Reference Range Interpretation Comments UA Urobilinogen (test code = UA 4.0 0.1-1.0 Urobilinogen) [facility] AND [id number] 21:29:00 Test Item Value Reference Range Interpretation Comments UA Blood (test code = Negative (03/02/16 3:29 UA Blood) PM) [facility] AND [id number] 21:29:00 Test Item Value Reference Range Interpretation Comments UA Bili (test code = Negative *NA*(03/02/16 UA Bili) 3:29 PM) [facility] [id number] 21:29:00 Test Item Value Reference Range Interpretation Comments U Cocaine Scr (test Negative *NA*(03/02/16 code = U Cocaine Scr) 3:29 PM) [facility] [id number] 21:29:00 Test Item Value Reference Range Interpretation Comments U Opiate Scr (test Negative *NA*(03/02/16 code = U Opiate Scr) 3:29 PM) [facility] [id number] 21:29:00 Test Item Value Reference Range Interpretation Comments U Cannab Scr (test Negative *NA*(03/02/16 code = U Cannab Scr) 3:29 PM) [facility] [id number] 21:29:00 Test Item Value Reference Range Interpretation Comments U Evelyn Scr (test code Negative *NA*(03/02/16 = U Evelyn Scr) 3:29 PM) [facility] [id number] 21:29:00 Test Item Value Reference Range Interpretation Comments U Amph Scr (test code Negative *NA*(03/02/16 = U Amph Scr) 3:29 PM) [facility] [id number] 21:29:00 Test Item Value Reference Range Interpretation Comments U Benzodia Scr (test Negative *NA*(03/02/16 code = U Benzodia Scr) 3:29 PM) [facility] [id number] 21:29:00 Test Item Value Reference Range Interpretation Comments U Phencyc Scr (test Negative *NA*(03/02/16 code = U Phencyc Scr) 3:29 PM) [facility] [id number] 21:29:00 Test Item Value Reference Range Interpretation Comments UDS Note (test code = See Note *NA*(03/02/16 UDS Note) 3:29 PM) [facility] [id number] 21:29:00 Test Item Value Reference Range Interpretation Comments UA Sq Epi (test code = UA Sq Epi) None Seen [facility] [id number] 21:29:00 Test Item Value Reference Range Interpretation Comments UA Mucus (test code = UA Mucus) Few /LPF [facility] [id number] 21:29:00 Test Item Value Reference Range Interpretation Comments UA RBC (test code = no gt See_Comment [Automa fredrick message] The UA RBC) system which ge nerated this result transmit fredrick reference range : <=2. The reference range was not used to interpr et this result as светлана l/abnormal. [facility] [id number] 21:29:00 Test Item Value Reference Range Interpretation Comments UA Turbidity (test code = Clear (03/02/16 3:29 UA Turbidity) PM) [facility] [id number] 21:29:00 Test Item Value Reference Range Interpretation Comments UA Color (test code = Yellow *NA*(03/02/16 3:29 UA Color) PM) [facility] AND [id number] 21:29:00 Test Item Value Reference Range Interpretation Comments UA Glucose (test code = UA Negative mg/dL Glucose) [facility] AND [id number] 21:29:00 Test Item Value Reference Range Interpretation Comments UA Protein (test code = UA Negative mg/dL Protein) [facility] AND [id number] 21:29:00 Test Item Value Reference Range Interpretation Comments UA pH (test code = UA pH) 7.0 5.0-8.0 [facility] AND [id number] 21:29:00 Test Item Value Reference Range Interpretation Comments UA Spec Grav (test code = UA Spec Grav) 1.012 [facility] AND [id number] 21:29:00 Test Item Value Reference Range Interpretation Comments UA WBC (test code = no gt See_Comment [Automa fredrick message] The UA WBC) system which ge nerated this result transmit fredrick reference range : <=5. The reference range was not used to interpr et this result as светлана l/abnormal. [facility] AND [id number] 21:29:00 Test Item Value Reference Range Interpretation Comments UA Leuk Est (test Negative (03/02/16 3:29 code = UA Leuk Est) PM) [facility] AND [id number] 21:29:00 Test Item Value Reference Range Interpretation Comments UA Nitrite (test code Negative (03/02/16 3:29 = UA Nitrite) PM) [facility] AND [id number] 21:29:00 Test Item Value Reference Range Interpretation Comments UA Ketones (test code = UA Negative mg/dL Ketones) [facility] AND [id number] 21:29:00 Test Item Value Reference Range Interpretation Comments UA Urobilinogen (test code = UA 4.0 0.1-1.0 Urobilinogen) [facility] AND [id number] 21:29:00 Test Item Value Reference Range Interpretation Comments UA Blood (test code = Negative (03/02/16 3:29 UA Blood) PM) [facility] AND [id number] 21:29:00 Test Item Value Reference Range Interpretation Comments UA Bili (test code = Negative *NA*(03/02/16 UA Bili) 3:29 PM) [facility] [place] [facility] [id number] 21:06:00 Test Item Value Reference Range Interpretation Comments RDW (test code = RDW) 13.2 11.5-14.5 [facility] [place] [facility] [id number] 21:06:00 Test Item Value Reference Range Interpretation Comments MCHC (test code = MCHC) 34.9 32.0-36.0 [facility] [place] [facility] [id number] 21:06:00 Test Item Value Reference Range Interpretation Comments Hgb (test code = Hgb) 16.0 14.0-18.0 [facility] [place] [facility] [id number] 21:06:00 Test Item Value Reference Range Interpretation Comments Hct (test code = Hct) 45.8 42.0-54.0 [facility] [place] [facility] [id number] 21:06:00 Test Item Value Reference Range Interpretation Comments MCV (test code = MCV) 90.9 80.0-94.0 [facility] [place] [facility] [id number] 21:06:00 Test Item Value Reference Range Interpretation Comments MCH (test code = MCH) 31.8 pg 27.0-31.0 [facility] [place] [facility] [id number] 21:06:00 Test Item Value Reference Range Interpretation Comments WBC (test code = WBC) 6.4 3.7-10.4 [facility] [place] [facility] [id number] 21:06:00 Test Item Value Reference Range Interpretation Comments RBC (test code = RBC) 5.04 4.70-6.10 [facility] [place] [facility] [id number] 21:06:00 Test Item Value Reference Range Interpretation Comments MPV (test code = MPV) 8.4 7.4-10.4 [facility] [place] [facility] [id number] 21:06:00 Test Item Value Reference Range Interpretation Comments Platelet (test code = Platelet) 194 133-450 [place] [id number] 21:06:00 Test Item Value Reference Range Interpretation Comments Acetaminoph Lvl (test code = (03/02/16 3:06 PM) 10-20 Acetaminoph Lvl) [place] [id number] 21:06:00 Test Item Value Reference Range Interpretation Comments Salicylate Lvl (test <1.7 mg/dL See_Comment [Autom ated message] code = Salicylate The system which Lvl) generated this result transmitted ref erence range: <=30.0. The reference range was not used to int erpret this result as normal/abnormal . [facility] [id number] 21:06:00 Test Item Value Reference Range Interpretation Comments Etoh (%) (test code = Etoh (%)) <0.003 % [facility] [id number] 21:06:00 Test Item Value Reference Range Interpretation Comments Ethanol Lvl (test code = Ethanol <3.0 mg/dL Lvl) [facility] [id number] 21:06:00 Test Item Value Reference Range Interpretation Comments Lipase Lvl (test code = Lipase Lvl) 180 73-393 [facility] [id number] 21:06:00 Test Item Value Reference Range Interpretation Comments Calcium Lvl (test code = Calcium Lvl) 9.2 8.5-10.5 [facility] [id number] 21:06:00 Test Item Value Reference Range Interpretation Comments CO2 (test code = CO2) 27 24-32 [facility] [id number] 21:06:00 Test Item Value Reference Range Interpretation Comments Chloride Lvl (test code = Chloride Lvl) 101 95-109 [facility] [id number] 21:06:00 Test Item Value Reference Range Interpretation Comments Potassium Lvl (test code = Potassium 4.1 3.5-5.1 Lvl) [facility] [id number] 21:06:00 Test Item Value Reference Range Interpretation Comments eGFR (test code = eGFR) 80 [facility] [id number] 21:06:00 Test Item Value Reference Range Interpretation Comments Creatinine Lvl (test code = Creatinine 1.03 0.50-1.40 Lvl) [facility] [id number] 21:06:00 Test Item Value Reference Range Interpretation Comments BUN (test code = BUN) 12 7-22 [facility] [id number] 21:06:00 Test Item Value Reference Range Interpretation Comments Sodium Lvl (test code = Sodium Lvl) 140 135-145 [facility]2017-01-05 21:06:00 Test Item Value Reference Range Interpretation Comments Glucose Lvl (test code = Glucose Lvl) 91 70-99 [facility]2017-01-05 21:06:00 Test Item Value Reference Range Interpretation Comments Bili Total (test code = Bili Total) 0.8 0.2-1.3 [facility]2017-01-05 21:06:00 Test Item Value Reference Range Interpretation Comments ALT (test code = ALT) 90 See_Comment [Auto mated message] The system which ge nerated this result transmit fredrick reference range : <=65. The reference range was not used to interpr et this result as светлана l/abnormal. [facility]2017-01-05 21:06:00 Test Item Value Reference Range Interpretation Comments Alk Phos (test code = Alk Phos) 88 39-136 [facility]2017-01-05 21:06:00 Test Item Value Reference Range Interpretation Comments AST (test code = AST) 59 See_Comment [Auto mated message] The system which ge nerated this result transmit fredrick reference range : <=37. The reference range was not used to interpr et this result as светлана l/abnormal. [facility]2017-01-05 21:06:00 Test Item Value Reference Range Interpretation Comments Total Protein (test code = Total 8.2 6.4-8.4 Protein) [facility]2017-01-05 21:06:00 Test Item Value Reference Range Interpretation Comments Albumin Lvl (test code = Albumin Lvl) 4.1 3.5-5.0 [facility]2017-01-05 21:06:00 Test Item Value Reference Range Interpretation Comments AGAP (test code = AGAP) 16.1 10.0-20.0 [facility]2017-01-05 21:06:00 Test Item Value Reference Range Interpretation Comments B/C Ratio (test code = B/C Ratio) 12 6-25 [facility]2017-01-05 21:06:00 Test Item Value Reference Range Interpretation Comments A/G Ratio (test code = A/G Ratio) 1.0 0.7-1.6 [facility]2017-01-05 21:06:00 Test Item Value Reference Range Interpretation Comments Globulin (test code = Globulin) 4.1 2.7-4.2 [id number] 21:06:00 Test Item Value Reference Range Interpretation Comments Monocytes # (test code 0.5 See_Comment [Aut omated message] The = Monocytes #) system which generated this result tra nsmitted reference range : <=0.8. The reference r joya was not used to int erpret this result as normal/abnormal . [facility] Res[id number] 21:06:00 Test Item Value Reference Range Interpretation Comments Eosinophils # (test code 0.1 See_Comment [A utomated message] The = Eosinophils #) system whic h generated this result tra nsmitted reference range : <=0.5. The reference r joya was not used to int erpret this result as normal/abnormal . [id number] 21:06:00 Test Item Value Reference Range Interpretation Comments Lymphocytes # (test code = Lymphocytes 1.3 1.0-5.5 #) [facility] Resourc[id number] 21:06:00 Test Item Value Reference Range Interpretation Comments Segs-Bands # (test code = Segs-Bands #) 4.4 1.5-8.1 [facility] Resourc[id number] 21:06:00 Test Item Value Reference Range Interpretation Comments Basophils (test code = 0.6 See_Comment [Aut omated message] The Basophils) system which ge nerated this result tra nsmitted reference range : <=1.0. The reference r joya was not used to int erpret this result as normal/abnormal . [facility] Resourc[id number] 21:06:00 Test Item Value Reference Range Interpretation Comments Segs (test code = Segs) 69.9 45.0-75.0 [facility] Resourc[id number] 21:06:00 Test Item Value Reference Range Interpretation Comments Lymphocytes (test code = Lymphocytes) 19.8 20.0-40.0 [facility] Resourc[id number] 21:06:00 Test Item Value Reference Range Interpretation Comments Plt Morph (test code = Clumped (03/02/16 3:06 Plt Morph) PM) [facility] Resourc[id number] 21:06:00 Test Item Value Reference Range Interpretation Comments Eosinophils (test code = 1.1 See_Comment [A utomated message] The Eosinophils) system which ge nerated this result tra nsmitted reference range : <=4.0. The reference r joya was not used to int erpret this result as normal/abnormal . [id number] 21:06:00 Test Item Value Reference Range Interpretation Comments Monocytes (test code = Monocytes) 8.6 2.0-12.0 [facility] Reso[id number] 21:06:00 Test Item Value Reference Range Interpretation Comments RBC Morph (test code = Normal (03/02/16 3:06 PM) RBC Morph) [facility]PevhlnmIXSXGISWTO4936-10-15 21:06:00 Test Item Value Reference Range Interpretation Comments RDW (test code = RDW) 13.2 11.5-14.5 [facility] Res[id number] 21:06:00 Test Item Value Reference Range Interpretation Comments MCHC (test code = MCHC) 34.9 32.0-36.0 [facility] Resourc[id number] 21:06:00 Test Item Value Reference Range Interpretation Comments Hgb (test code = Hgb) 16.0 14.0-18.0 [facility] Resourc[id number] 21:06:00 Test Item Value Reference Range Interpretation Comments Hct (test code = Hct) 45.8 42.0-54.0 [facility] Reso[id number] 21:06:00 Test Item Value Reference Range Interpretation Comments MCV (test code = MCV) 90.9 80.0-94.0 [facility] ResourcesXmonnneZKXYKCCMHH7797-41-42 21:06:00 Test Item Value Reference Range Interpretation Comments MCH (test code = MCH) 31.8 pg 27.0-31.0 [facility] Res[id number] 21:06:00 Test Item Value Reference Range Interpretation Comments WBC (test code = WBC) 6.4 3.7-10.4 [facility]OoycgpyCPWFUYEFOC8654-72-48 21:06:00 Test Item Value Reference Range Interpretation Comments RBC (test code = RBC) 5.04 4.70-6.10 [facility] Reso[id number] 21:06:00 Test Item Value Reference Range Interpretation Comments MPV (test code = MPV) 8.4 7.4-10.4 [facility] Resourc[id number] 21:06:00 Test Item Value Reference Range Interpretation Comments Platelet (test code = Platelet) 194 133-450 [place] [id number] 21:06:00 Test Item Value Reference Range Interpretation Comments Acetaminoph Lvl (test code = (03/02/16 3:06 PM) 10-20 Acetaminoph Lvl) [place] [id number] 21:06:00 Test Item Value Reference Range Interpretation Comments Salicylate Lvl (test <1.7 mg/dL See_Comment [Autom ated message] code = Salicylate The system which Lvl) generated this result transmitted ref erence range: <=30.0. The reference range was not used to int erpret this result as normal/abnormal . [place] [id number] 21:06:00 Test Item Value Reference Range Interpretation Comments Etoh (%) (test code = Etoh (%)) <0.003 % [place] [id number] 21:06:00 Test Item Value Reference Range Interpretation Comments Ethanol Lvl (test code = Ethanol <3.0 mg/dL Lvl) [facility] [id number] 21:06:00 Test Item Value Reference Range Interpretation Comments Lipase Lvl (test code = Lipase Lvl) 180 73-393 [facility] [id number] 21:06:00 Test Item Value Reference Range Interpretation Comments Calcium Lvl (test code = Calcium Lvl) 9.2 8.5-10.5 [facility] [id number] 21:06:00 Test Item Value Reference Range Interpretation Comments CO2 (test code = CO2) 27 24-32 [facility]2017-01-05 21:06:00 Test Item Value Reference Range Interpretation Comments Chloride Lvl (test code = Chloride Lvl) 101 95-109 [facility] [id number] 21:06:00 Test Item Value Reference Range Interpretation Comments Potassium Lvl (test code = Potassium 4.1 3.5-5.1 Lvl) [facility]2017-01-05 21:06:00 Test Item Value Reference Range Interpretation Comments eGFR (test code = eGFR) 80 [facility]2017-01-05 21:06:00 Test Item Value Reference Range Interpretation Comments Creatinine Lvl (test code = Creatinine 1.03 0.50-1.40 Lvl) [facility]2017-01-05 21:06:00 Test Item Value Reference Range Interpretation Comments BUN (test code = BUN) 12 7-22 [facility]2017-01-05 21:06:00 Test Item Value Reference Range Interpretation Comments Sodium Lvl (test code = Sodium Lvl) 140 135-145 [facility]2017-01-05 21:06:00 Test Item Value Reference Range Interpretation Comments Glucose Lvl (test code = Glucose Lvl) 91 70-99 [facility]2017-01-05 21:06:00 Test Item Value Reference Range Interpretation Comments Bili Total (test code = Bili Total) 0.8 0.2-1.3 [facility]2017-01-05 21:06:00 Test Item Value Reference Range Interpretation Comments ALT (test code = ALT) 90 See_Comment [Auto mated message] The system which ge nerated this result transmit fredrick reference range : <=65. The reference range was not used to interpr et this result as светлана l/abnormal. [facility]2017-01-05 21:06:00 Test Item Value Reference Range Interpretation Comments Alk Phos (test code = Alk Phos) 88 39-136 [facility]2017-01-05 21:06:00 Test Item Value Reference Range Interpretation Comments AST (test code = AST) 59 See_Comment [Auto mated message] The system which ge nerated this result transmit fredrick reference range : <=37. The reference range was not used to interpr et this result as светлана l/abnormal. [facility]2017-01-05 21:06:00 Test Item Value Reference Range Interpretation Comments Total Protein (test code = Total 8.2 6.4-8.4 Protein) [facility]2017-01-05 21:06:00 Test Item Value Reference Range Interpretation Comments Albumin Lvl (test code = Albumin Lvl) 4.1 3.5-5.0 [facility]2017-01-05 21:06:00 Test Item Value Reference Range Interpretation Comments AGAP (test code = AGAP) 16.1 10.0-20.0 [facility]2017-01-05 21:06:00 Test Item Value Reference Range Interpretation Comments B/C Ratio (test code = B/C Ratio) 12 6-25 [facility]2017-01-05 21:06:00 Test Item Value Reference Range Interpretation Comments A/G Ratio (test code = A/G Ratio) 1.0 0.7-1.6 [facility]2017-01-05 21:06:00 Test Item Value Reference Range Interpretation Comments Globulin (test code = Globulin) 4.1 2.7-4.2 [facility] R[id number] 21:06:00 Test Item Value Reference Range Interpretation Comments Monocytes # (test code 0.5 See_Comment [Aut omated message] The = Monocytes #) system which generated this result tra nsmitted reference range : <=0.8. The reference r joya was not used to int erpret this result as normal/abnormal . [facility] Res[id number] 21:06:00 Test Item Value Reference Range Interpretation Comments Eosinophils # (test code 0.1 See_Comment [A utomated message] The = Eosinophils #) system whic h generated this result tra nsmitted reference range : <=0.5. The reference r joya was not used to int erpret this result as normal/abnormal . [facility] Re[id number] 21:06:00 Test Item Value Reference Range Interpretation Comments Lymphocytes # (test code = Lymphocytes 1.3 1.0-5.5 #) [facility] ResourcesWfrjsrlRTXVOSKZSB1327-19-28 21:06:00 Test Item Value Reference Range Interpretation Comments Segs-Bands # (test code = Segs-Bands #) 4.4 1.5-8.1 [facility] Reso[id number] 21:06:00 Test Item Value Reference Range Interpretation Comments Basophils (test code = 0.6 See_Comment [Aut omated message] The Basophils) system which ge nerated this result tra nsmitted reference range : <=1.0. The reference r joya was not used to int erpret this result as normal/abnormal . [facility] Re[id number] 21:06:00 Test Item Value Reference Range Interpretation Comments Segs (test code = Segs) 69.9 45.0-75.0 [facility] Re[id number] 21:06:00 Test Item Value Reference Range Interpretation Comments Lymphocytes (test code = Lymphocytes) 19.8 20.0-40.0 [facility] Re[id number] 21:06:00 Test Item Value Reference Range Interpretation Comments Plt Morph (test code = Clumped (03/02/16 3:06 Plt Morph) PM) [facility] Resourc[id number] 21:06:00 Test Item Value Reference Range Interpretation Comments Eosinophils (test code = 1.1 See_Comment [A utomated message] The Eosinophils) system which ge nerated this result tra nsmitted reference range : <=4.0. The reference r joya was not used to int erpret this result as normal/abnormal . [facility]NpvvgsdROWTHFOQHO9476-20-22 21:06:00 Test Item Value Reference Range Interpretation Comments Monocytes (test code = Monocytes) 8.6 2.0-12.0 [facility] ResourcesUgyytwyFCEZSFMLXR0779-13-30 21:06:00 Test Item Value Reference Range Interpretation Comments RBC Morph (test code = Normal (03/02/16 3:06 PM) RBC Morph) [facility]
[2022-02-13] MEDS ORDERED: IBUPROFEN 400 MG TAB ONE (16:23)
[2022-02-13] MEDS ORDERED: HYDROCODONE/APAP 7.5/325 MG TAB ONE (16:24)
--- NOTE | 2022-02-13 17:12 | RAD REPORT ---
EXAM DESCRIPTION: USExtremity Venous Uni Ltd02/13/2022 4:43 pm CLINICAL HISTORY: left leg pain COMPARISON: December 2021 FINDINGS: Left common femoral, superficial femoral, greater saphenous, popliteal and posterior tibi al veins are compressible and demonstrate augmentation. Doppler demonstrates good flow. Grayscale, color and spectral analysis performed on all vessels IMPRESSION: No evidence of deep venous thrombosis involving the left lower extremity.
--- NOTE | 2022-02-13 17:54 | RAD REPORT ---
EXAM DESCRIPTION: RAD - Knee Left 3 View - 02/13/2022 5:37 pm CLINICAL HISTORY: Left knee pain FINDINGS: Spur extends off of the anterior aspect of the patella. There is a lucency which indicates that it has become detached. No fracture or dislocation seen.
[2022-02-13] MEDS ORDERED: FENTANYL CITR 100 MCG/2 ML ONE ×2 (19:32→20:53)
--- NOTE | 2022-02-13 20:42 | RAD REPORT ---
EXAM DESCRIPTION: CT - Knee Left Wo Con - 02/13/2022 8:25 pm CLINICAL HISTORY: Left knee pain status post injury COMPARISON: X-ray 02/13/2022 TECHNIQUE: Computed axial tomography left obtained All CT scans are performed using dose optimization technique as appropriate and may include automated exposure control or mA/KV adjustment according to patient size. FINDINGS: A prominent spur extends off the anterior aspect of the patella. It is detached. The borde r is sclerotic which indicates that it likely is chronic. No acute fracture or dislocation is seen. Small to moderate joint effusion Subchondral cysts within the tibia. IMPRESSION: Small to moderate joint effusion. No acute fracture or dislocation. If patient continues have symptoms to suggest an occult fracture, ligamentous or meniscal injury then MRI would be recommended
[2022-02-13] MEDS ORDERED: KETOROLAC 30 MG/ML INJ ONE (20:55)
--- NOTE | 2022-02-13 20:56 | EDPHYS ---
Physician Documentation [facility] Name: Kunal Russell Age: 61 yrs Sex: Male : 1960 Arrival Date: 02/13/2022 Time: 15:42 Bed 14 Private MD: ED Physician Pedro Main HPI: 02/13 16:20 This 61 yrs old Male presents to ER via Wheelchair with complaints of Knee Pain. cp 16:20 The patient presents with pain. cp 16:20 The complaints affect the left knee. 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 Patient reports he had appointment with DR Rae last week that he missed. 16:20 Associated signs and symptoms: Pertinent positives: calf tenderness, posterior knee cp pain, Pertinent negatives fever, rash, warmth, weakness. 16:20 Treatment prior to arrival includes: no previous treatment. cp Historical: - Allergies: 16:18 Codeine; jh5 16:18 Demerol; jh5 16:18 Morphine; jh5 16:18 PENICILLINS; jh5 16:18 Phenergan; jh5 - PMHx: 16:18 Hypertension; jh5 - Immunization history:: Adult Immunizations up to date. - Social history:: Smoking status: Patient denies any tobacco usage or history of. ROS: 16:25 Constitutional: Negative for fever. cp 16:25 MS/extremity: Positive for pain, of the left knee, Negative for decreased range of cp motion, deformity, paresthesias. Exam: 16:30 Constitutional: The patient appears in no acute distress, alert, awake, cp non-diaphoretic, non-toxic, well developed, well nourished, uncomfortable. 16:30 Head/Face: Normocephalic, atraumatic. cp 16:30 Cardiovascular: Rate: normal. 16:30 Respiratory: the patient does not display signs of respiratory distress, Respirations: normal, no use of accessory muscles, no retractions, labored breathing, is not present. 16:30 Abdomen/GI: Exam negative for discomfort, distension, guarding, Inspection: abdomen appears normal. 16:30 Back: pain, is absent, ROM is normal. 16:30 Musculoskeletal/extremity: Extremities: grossly normal except: noted in the left knee: pain, tenderness, There is no evidence of decreased ROM, deformity, ROM: limited passive range of motion, in the left knee, limited passive range of motion due to pain, in the left knee, DVT Exam: pain, that is marked, of the left leg, tenderness, of the left posterior knee and left lower leg . 16:30 Skin: overlying skin of left knee warm and dry with no signs of cellulitis. 16:30 Neuro: Orientation: to person, place \T\ time. Mentation: is normal. Vital Signs: 16:14 BP 119 / 96; Pulse 73; Resp 16; Temp 98.6; Pulse Ox 100% ; Weight 108.86 kg; Height 6 jh5 ft. 1 in. (185.42 cm); Pain 10/10; 19:16 BP 157 / 85; Pulse 61; Resp 18; Pulse Ox 98% on R/A; em6 20:55 BP 163 / 76; Pulse 64; Resp 18; Pulse Ox 99% on R/A; em6 16:14 Body Mass Index 31.66 (108.86 kg, 185.42 cm) 5 Procedures: 19:20 Splinting: Splint applied to left knee using knee immobilizer, applied by nurse. cp Examined by me, post splint application: neurovascular intact, Patient tolerated well. MDM: 16:23 Patient medically screened. cp 20:55 Data reviewed: vital signs, nurses notes, radiologic studies, CT scan, plain films, cp ultrasound. 20:55 Test interpretation: by ED physician or midlevel provider: plain radiologic studies. cp Counseling: I had a detailed discussion with the patient and/or guardian regarding: the historical points, exam findings, and any diagnostic results supporting the discharge/admit diagnosis, radiology results, the need for outpatient follow up, a orthopedic surgeon. Response to treatment: the patient's symptoms have mildly improved after treatment, and as a result, I will discharge patient. 02/13 16:17 Order name: XRAY Knee LEFT 3 view; Complete Time: 18:06 cp 02/13 18:06 Interpretation: Report reviewed. cp 02/13 16:17 Order name: US Extremity Venous Unilateral Ltd; Complete Time: 17:30 cp 02/13 17:30 Interpretation: Report reviewed. cp 02/13 19:31 Order name: Knee Left Wo Con; Complete Time: 20:50 EDMS 02/13 20:50 Interpretation: Report reviewed. cp 02/13 19:23 Order name: Knee Immobilizer; Complete Time: 21:19 cp 02/13 21:00 Order name: Crutches; Complete Time: 21:18 cp Administered Medications: 16:23 Drug: Ibuprofen 800 mg Route: PO; 5 17:20 Follow up: Response: No adverse reaction em6 16:23 Drug: Hydrocodone-Acetaminophen (7.5 mg-325 mg) 1 tabs Route: PO; jh5 17:20 Follow up: Response: No adverse reaction em6 19:39 Drug: fentaNYL (PF) 25 mcg Route: IM; Site: right deltoid; em6 20:00 Follow up: Response: No adverse reaction; RASS: Alert and Calm (0) em6 20:54 Drug: TORadol (ketorolac) 30 mg Route: IM; Site: left deltoid; em6 21:18 Follow up: Response: No adverse reaction em6 20:55 Drug: fentaNYL (PF) 25 mcg Route: IM; Site: right deltoid; em6 21:18 Follow up: Response: No adverse reaction; RASS: Alert and Calm (0) em6 Disposition: 19:12 Co-signature as Attending Physician, Iván SOL was immediately available on-site ms3 in the Emergency Department for consultation in the care of the patient. Disposition Summary: 02/13/22 20:56 Discharge Ordered Location: Home cp Problem: new cp Symptoms: have improved cp Condition: Stable cp Diagnosis - Pain in left knee cp Followup: cp - With: Carlos Rae MD - When: 2 - 3 days - Reason: Recheck today's complaints Discharge Instructions: - Discharge Summary Sheet cp - Elastic Bandage and RICE Therapy cp - Joint Pain cp - How to Use a Knee Immobilizer cp Forms: - Medication Reconciliation Form cp - Thank You Letter cp - Antibiotic Education cp - Prescription Opioid Use cp - Work release form em6 Prescriptions: - Diclofenac Sodium 75 mg Oral Tablet Sustained Release - take 1 tablet by ORAL route 2 times per day; 30 tablet; Refills: 0, Product cp Selection Permitted - Tramadol 50 mg Oral Tablet - take 1 tablet by ORAL route every 8 hours as needed; 12 tablet; Refills: 0, cp Product Selection Permitted Signatures: Dispatcher [employer] EDMS Basilio Verde PA PA cp Sims, Marcus, DO DO ms3 Kerry Jay RN RN 5 Kailyn Robb RN RN em6 Corrections: (The following items were deleted from the chart) 19: 19:27 CT LEFT KNEE WO CONTRAST ordered. EDMS EDMS 02/14 19:05 02/13 16:20 Context: chronic pain that became worse after stepping down from [employer], cp cp
--- NOTE | 2022-02-13 20:56 | ER ---
Nurse's Notes [facility] Name: Kunal Russell Age: 61 yrs Sex: Male : 1960 Arrival Date: 02/13/2022 Time: 15:42 Bed 14 Private MD: Diagnosis: Pain in left knee Presentation: 02/13 16:14 Chief complaint: Patient states: my left knee been hurting me really bad for a long jh5 time; stepped off my dozer today and twisted it wrong. I had a ortho appointment scheduled last week nd forgot about it .. I need an MRI. Coronavirus screen: Vaccine status: Patient reports receiving the 2nd dose of the covid vaccine. Client denies travel out of the [place] in the last 14 days. Ebola Screen: Patient negative for fever greater than or equal to 101.5 degrees Fahrenheit, and additional compatible Ebola Virus Disease symptoms Patient denies exposure to infectious person. Patient denies travel to an Ebola-affected area in the 21 days before illness onset. Initial Sepsis Screen: Does the patient meet any 2 criteria? No. Patient's initial sepsis screen is negative. Does the patient have a suspected source of infection? No. Patient's initial sepsis screen is negative. Risk Assessment: Do you want to hurt yourself or someone else? Patient reports no desire to harm self or others. Onset of symptoms was 2021. 16:14 Method Of Arrival: Wheelchair [facility] 16:14 Acuity: HUY 3 jh5 Triage Assessment: 16:18 General: Appears in no apparent distress. uncomfortable, Behavior is calm, cooperative, jh5 appropriate for age. Pain: Complains of pain in left leg. Historical: - Allergies: 16:18 Codeine; 5 16:18 Demerol; 5 16:18 Morphine; 5 16:18 PENICILLINS; 5 16:18 Phenergan; 5 - PMHx: 16:18 Hypertension; 5 - Immunization history:: Adult Immunizations up to date. - Social history:: Smoking status: Patient denies any tobacco usage or history of. Screenin:13 Abuse screen: Denies threats or abuse. Nutritional screening: No deficits noted. em6 Tuberculosis screening: No symptoms or risk factors identified. Fall Risk Gait- Impaired (20 pts.). Total [place] Fall Scale indicates No Risk (0-24 pts). 19:13 [facility] ED Fall Risk Assessment (Adult) History of falling in the last 3 months, em6 including since admission No falls in past 3 months (0 pts) Confusion or Disorientation No (0 pts) Intoxicated or Sedated No (0 pts) Impaired Gait Yes (1 pt) Mobility Assist Device Used Yes (1 pt) Altered Elimination No (0 pt) Score/Fall Risk Level 0 - 2 = Low Risk Oriented to surroundings, Maintained a safe environment, Educated pt \T\ family on fall prevention, incl call for assistance when getting out of bed, Assessed \T\ reinforced patient's understanding of fall precautions, Provided non-skid footwear, Hourly rounding (assess needs \T\ fall precautionary measures) done, Used ambulatory aids as needed (educated on \T\ assisted with), Used gait belt as appropriate. Humpty Dumpty Scale Fall Assessment Tool (age< 18yrs) Fall Risk Score/ Level. Assessment: 19:14 General: Appears in no apparent distress. Behavior is cooperative. Pain: Complains of em6 pain in left leg Pain does not radiate. Pain currently is 6 out of 10 on a pain scale. Quality of pain is described as pressure, sharp. Neuro: Level of Consciousness is awake, alert, obeys commands, Oriented to person, place, time, situation. Cardiovascular: Patient's skin is warm and dry. Respiratory: Airway is patent Respiratory effort is even, unlabored, Respiratory pattern is regular, symmetrical. GI: No signs and/or symptoms were reported involving the gastrointestinal system. : No signs and/or symptoms were reported regarding the genitourinary system. EENT: No signs and/or symptoms were reported regarding the EENT system. Derm: No signs and/or symptoms reported regarding the dermatologic system. Musculoskeletal: Circulation, motion, and sensation intact. Capillary refill < 3 seconds, Range of motion: intact in all extremities. 19:30 Reassessment:. Reassessment: provider notified. new order given. Pain: Complains of em6 pain in left leg. Neuro: Level of Consciousness is awake, alert, obeys commands, Oriented to person, place, time, situation. Respiratory: Airway is patent Respiratory effort is even, unlabored, Respiratory pattern is regular, symmetrical. 20:30 Reassessment: Patient appears in no apparent distress at this time. No changes from em6 previously documented assessment. Patient and/or family updated on plan of care and expected duration. Pain level reassessed. Patient is alert, oriented x 3, equal unlabored respirations, skin warm/dry/pink. 20:50 Pain: Complains of pain in left leg Pain does not radiate. Pain currently is 10 out of em6 10 on a pain scale. Quality of pain is described as pressure, sharp. Neuro: Level of Consciousness is awake, alert, obeys commands, Oriented to person, place, time, situation. Respiratory: Airway is patent Respiratory effort is even, unlabored, Respiratory pattern is regular, symmetrical. 20:50 Reassessment: provider notified of pain. new order given. em6 Vital Signs: 16:14 BP 119 / 96; Pulse 73; Resp 16; Temp 98.6; Pulse Ox 100% ; Weight 108.86 kg; Height 6 jh5 ft. 1 in. (185.42 cm); Pain 10/10; 19:16 BP 157 / 85; Pulse 61; Resp 18; Pulse Ox 98% on R/A; em6 20:55 BP 163 / 76; Pulse 64; Resp 18; Pulse Ox 99% on R/A; em6 16:14 Body Mass Index 31.66 (108.86 kg, 185.42 cm) 5 ED Course: 15:42 Patient arrived in ED. mr 15:42 Basilio Verde PA is PHCP. cp 15:42 Iván Meza DO is Attending Physician. cp 16:18 Triage completed. jh5 16:18 Arm band placed on right wrist. jh5 16:45 US Extremity Venous Unilateral Ltd In Process Unspecified. EDMS 17:39 XRAY Knee LEFT 3 view In Process Unspecified. EDMS 19:06 Kailyn Robb, RN is Primary Nurse. em6 19:13 Bed in low position. Call light in reach. Side rails up X 1. Pulse ox on. NIBP on. Warm em6 blanket given. 20:27 Knee Left Wo Con In Process Unspecified. EDMS 20:55 Carlos Rae MD is Referral Physician. cp 20:57 Pedro Main MD is Attending Physician. cp 21:17 No provider procedures requiring assistance completed. Patient did not have IV access em6 during this emergency room visit. Administered Medications: 16:23 Drug: Ibuprofen 800 mg Route: PO; jh5 17:20 Follow up: Response: No adverse reaction em6 16:23 Drug: Hydrocodone-Acetaminophen (7.5 mg-325 mg) 1 tabs Route: PO; jh5 17:20 Follow up: Response: No adverse reaction em6 19:39 Drug: fentaNYL (PF) 25 mcg Route: IM; Site: right deltoid; em6 20:00 Follow up: Response: No adverse reaction; RASS: Alert and Calm (0) em6 20:54 Drug: TORadol (ketorolac) 30 mg Route: IM; Site: left deltoid; em6 21:18 Follow up: Response: No adverse reaction em6 20:55 Drug: fentaNYL (PF) 25 mcg Route: IM; Site: right deltoid; em6 21:18 Follow up: Response: No adverse reaction; RASS: Alert and Calm (0) em6 Medication: 19:13 VIS not applicable for this client. em6 Outcome: 20:56 Discharge ordered by . cp 21:18 Discharged to home via wheelchair, with crutches. em6 21:18 Condition: stable 21:18 Discharge instructions given to patient, significant other, Instructed on discharge instructions, follow up and referral plans. medication usage, Demonstrated understanding of instructions, follow-up care, medications, crutch walking, splint care, Prescriptions given X 2. 21:19 Patient left the ED. em6 Signatures: Dispatcher [employer] Love RoweBasilio PA PA cp Rees, Jessica, RN RN jh5 Kailyn Robb RN RN em6 Corrections: (The following items were deleted from the chart) 21:05 20:50 Respiratory: Airway is patent Respiratory effort is even, unlabored, Respiratory em6 pattern is regular, symmetrical, em6
[2022-02-13 21:25] VITALS: TEMP 98.6
[2022-02-13 21:27] VITALS: BP 163/76; O2SAT 99
== END 2022-02-13 21:19 | disposition home or self-care (01) ==
LOC: ER 15:37
DX: M25.562 Pain in left knee (principal); Z88.0 Allergy status to penicillin; Z88.5 Allergy status to narcotic agent; Z88.8 Allergy status to other drugs, medicaments and biological substances
CPT/HCPCS: 73700; 73562; 93971; J3010 ×2; 96372; 99284